=== PATIENT | male | born 1950 | race African-American/Black ===

== ENCOUNTER 2016-12-13 11:19 | Day surgery (SDC) | payer MEDICARE, BC ==
[~2016-12-13] VITALS: Ht 177.8 cm; Wt 129.0 kg
[~2016-12-13 11:19] MED LIST: ASPI81 PO; CINA30 PO; FOSR1000 CHEW; SIMV40TA PO; TEMA30CA PO
[2016-12-13] MEDS ORDERED: IOHEXOL 350 MG/ML 100 ML BTL (for Cath Lab) OTHER ONE (11:20)
[2016-12-13] MEDS ORDERED: TEMA30CA PO (11:52)
[2016-12-13] MEDS ORDERED: SEVEL800 PO (11:52)
[2016-12-13] MEDS ORDERED: ATOR10TA15 PO (11:52)
[2016-12-13] MEDS ORDERED: NIFE30TA61 PO (11:52)
[2016-12-13] MEDS ORDERED: ASPI81CH6 CHEW (11:52)
[2016-12-13] MEDS ORDERED: SENS90TA PO (11:52)
[2016-12-13] MEDS ORDERED: VITA500012 PO (11:52)
[2016-12-13 11:53] VITALS: BP 115/52; PULSE 80; RESP 17; TEMP 98; O2SAT 98
[2016-12-13 11:59] LABS: AUTOMATED NEUTROPHIL # 3.3 TH/MM3 (1.8-7.7); BASOPHIL % 0.2 % (0.0-2.0); EOSINOPHIL # 0.9 TH/MM3 (0-0.4); HEMATOCRIT 37.8 % (39.0-51.0); HEMO FLAGS DIFF FINAL; LYMPH % 26.5 % (9.0-44.0); LYMPHOCYTE # 1.8 TH/MM3 (1.0-4.8); MEAN CELL VOLUME 89.6 FL (80.0-100.0); MEAN CORPUSCULAR HEMOGLOBIN 30.9 PG (27.0-34.0); MEAN CORPUSCULAR HGB CONC 34.5 % (32.0-36.0); MONO % 11.3 % (0.0-8.0); PLATELET COUNT 198 TH/MM3 (150-450); RED BLOOD COUNT 4.22 MIL/MM3 (4.50-5.90); RED CELL DISTRIBUTION WIDTH 14.4 % (11.6-17.2); WHITE BLOOD COUNT 6.8 TH/MM3 (4.0-11.0)
[2016-12-13 12:08] LABS: APTT (PATIENT) 26.4 SEC (24.3-30.1); PROTHROMBIN TIME - PATIENT 10.7 SEC (9.8-11.6)
[2016-12-13] MEDS ORDERED: NS 1000P @30 MLS/HR (KVO) IV SCH (12:15)
[2016-12-13] MEDS ORDERED: diphenhydrAMINE HCL 50 MG CAP PO SCH (12:15)
[2016-12-13 12:18] LABS: POTASSIUM 3.6 MEQ/L (3.5-5.1)
[2016-12-13] MEDS ORDERED: HEPARIN-NS/PF INJ 1,000 ML ONE (13:14)
[2016-12-13] MEDS ORDERED: VERAPAMIL HCL 5 MG/2 ML VIAL ONE (13:21)
[2016-12-13] MEDS ORDERED: MIDAZOLAM HCL 2 MG/2 ML VIAL ONE (13:21)
[2016-12-13] MEDS ORDERED: HEPARIN SODIUM - IV 10,000 UNITS/10 ML VIAL ONE (13:21)
[2016-12-13] MEDS ORDERED: ATROPINE SULFATE 1 MG/ML VIAL IV PUSH PRN (14:00)
[2016-12-13] MEDS ORDERED: ONDANSETRON HCL 4 MG/2 ML VIAL IV PUSH PRN (14:00)
--- NOTE | 2016-12-13 14:01 | CATHPROC ---
[facility] HIS Report Study Information Study Number Admission Scheduled Start Study Start [id number] Dec 13 2016 11:19AM 12/13/2016 Dec 13 2016 1:10PM [facility] Cardiac Catheterization Admit Source Facility Department Other [facility] - Web Applications Architect Physician and Clinical Staff Initial MD Bender, Terell Jeeper Operator Mario Borrego,RASHEED Other cathlab, cathlab Recorder Tiffanie Holguin,NURSE TRANSITION TECH2 Scrub Rebeca Sanabria,RT(R) Procedures Performed Procedure Location (Site) Vessel Name Coronary Angiograms LCA Left Coronary Coronary Angiograms RCA Right Coronary L Heart Cath Equipment Time Online Activist Description Size Mfg Part Number Used/Scraped TRANSDUCER, TRUWAVE [id number] 13:14 [employer]ak VO * Used W/STOCKCOCK *[id number] *[id number] *[id number] 13:14 Ranberry PACK, CCL CUSTOM * Used *[id number] 13:14 [employer] SUPPORT, ARTERIAL ADULT 18414 *[id number] Used BAND, RADIAL COMPRESSION TR [id number] 13:56 [employer] MEDICAL 29CM Used LARGE 29 *[id number] 13:14 [employer] WIRE, 3MMJ .035 180CM 180CM Used *[id number] 13:14 NAMIC MANIFOLD, 4 PORT * Used *[id number] 13:14 NYCOMED OMNIPAQUE, 350 MG, 150ML 150ML [id number] Used [id number] 13:14 [employer] BLANKET,WARM AIR CCL * Used *[id number] SHEATH, FR6 TRANSRADIAL [id number] 13:14 [employer] FR 6 Used SLENDER 10CM *[id number] History: Current Medications Medication Dosage/Unit Route Frequency Last Date/Time Taken ASA Statins (any) History: Allergies Allergy Reaction shellfish derived nuts History: Risk Factors Family History of Hypertension Dyslipidemia Previous ME Previous Heart Failure Premature CAD Yes Yes No No No Prior Valve Prior PCI Prior CABG Surgery No No No Cerebrovascular Peripheral Artery Chronic Lung On Dialysis Diabetes Diabetes Therapy Disease Disease Disease Yes Yes No Yes Yes Diet History: Stress Tests Stress or Imaging Studies Performed No History: Other Disease Selection Items HTN History: Other Current Smoker No Labs Hgb (g/dl) Hct (%) WBC (l/cumm) Platelets (thousands) 11.60-17.00 35.00-51.00 4.00-11.00 150.00-450.00 13.0 37.8 6.8 198 Glucose (mg/dl) BUN (mg/dl) Creatinine (mg/dl) BUN:Creatinine (1:x) 74.00-106.00 7.00-18.00 0.50-1.30 10.00-20.00 146 23 6.7 3.4 Na (meq/l) K (meq/l) 136.00-145.00 3.50-5.10 135 3.6 INR (PTT:PT) 0.90-1.10 1 CPK-MB (ng/ML) 0.50-3.60 Not Drawn Medication Medication Total Dose (Bolus/Oral) Medication Total Dosage/Unit 1% XYLOCAINE 10 mL FENTANYL 25 mcg RADIAL COCKTAIL 5 mL (Bolus) VERSED 2 mg Medications (Bolus/Oral) Medication Time Given Dosage/Unit Administered By Reason VERSED 12/13/2016 1:36:02 PM 1 mg Mario Borrego 1 mg VERSED given in lab by Mario Borrego RN in Right Antecubital via Peripheral IV. Ordered by Terell Arevalo. FENTANYL 12/13/2016 1:36:10 PM 25 mcg Mario Borrego 25 mcg FENTANYL given in lab by Mario Borrego RN in Right Antecubital via Peripheral IV. Ordered by Terell Bender. 1% XYLOCAINE 12/13/2016 1:41:24 PM 10 mL Terell Bender 10 mL 1% XYLOCAINE given in lab by Terell Bender in Right Radial via Subcutaneous. Ordered by Terell Conde. VERSED 12/13/2016 1:43:17 PM 1 mg Mario Borrego 1 mg VERSED given in lab by Mario Borrego RN in Right Antecubital via Peripheral IV. Ordered by Terell Arevalo. Ntg 200mcg Verapamil 2.5mg Heparin RADIAL COCKTAIL 12/13/2016 1:43:34 PM 5 mL (Bolus) Terell Bender 2500U 5 mL (Bolus) RADIAL COCKTAIL given in lab by Terell Bender in Right Radial via Radial. Using [Jaylin ution Name]. Ordered by Terell Bender. Reason: Ntg 200mcg Verapamil 2.5mg Heparin 2500U. Medication (Drip) Medication Time Given Dosage/Unit Concentration/Unit Diluent (ml) Solution IV Solutions 12/13/2016 1:13:15 PM 0 mL (IV) 500 NaCl .9 Patient arrived on IV Solutions given by ashley ramirez in Right Antecubital via Peripheral IV. Pum p/Drip Flow = 20 ml/hr using NaCl .9. Ordered by Terell Bender. Initial Case Assessment Cardiovascular HR Rhythm NIBP Chest Pain 68 andrei 97/47 0 Edema Present Skin color Skin None Normal Warm Dry Circulatory - Right Pulses Dorsalis Pedis Femoral Radial 1 2 2 Scale (0,1,2,3,4,d) Scale (0,1,2,3,4,d) Neurological State Oriented to time-place- Alert Moves all extremities person Respiration - General Respiration Rate SpO2 (%) (B/min) 15 100 Final Case Assessment Cardiovascular HR Rhythm NIBP Chest Pain 85 andrei 94/34 0 Edema Present Skin color Skin None Normal Warm Dry Circulatory - Right Pulses Dorsalis Pedis Femoral Radial 1 2 2 Scale (0,1,2,3,4,d) Scale (0,1,2,3,4,d) Neurological State Oriented to time-place- Alert Moves all extremities person Respiration - General Respiration Rate SpO2 (%) (B/min) 16 100 Chronological Log Time Study Chronological Log 13:09:47 Patient arrived via Bed. 13:09:47 Patient Name, D.O.B, / Armband Verified By R.N. 13:13:07 Consent signed by the physician and the patient and verified by the Web Applications Architect staff. 13:13:08 Pre-op and post- op instructions given; patient acknowledges understanding of instructions. 13:13:08 Verbal Stimulation=2 Physical Stimulation=2 Airway=2 Respiration=2 TOTAL=8. (0=absent, 1=li mited, 2=present) 13:13:09 Presedation assessment performed by Web Applications Architect RN. 13:13:09 Allens test performed on the right radial and ulnar artery. 13:13:10 Immediate Presedation assesment performed by physician. 13:13:10 Patient has been NPO for More than 6Hrs. 13:13:12 Skin Breakdown- none per patient 13:13:12 Patient Warmer Placed on the Table. 13:13:14 Almaz Prominences Protected 13:13:15 A # 20 IV was noted in the Antecubital (right). Grade = 0 Patient arrived on IV Solutions given by cathlab cathkaci in Right Antecubital via Peripheral I V. Pump/Drip Flow = 20 13:13:15 ml/hr using NaCl .9. Ordered by Terell Bender. 13:13:16 History and physical on the chart or being dictated. Vitals capture started with the following parameters, Patient=Adult, Interval=5 min, Initial Pr qrilrt=051 mmHg, 13:16:53 Deflation Rate=5 mmHg, Cuff placed on Left Arm 13:17:33 HR=68 bpm, NIBP=97/47 mmhg, SpO2=99 %, Resp=15 B/min, Pain=0, Skylar=10, Zhang=2 Assessment: Initial Case, HR=68 BPM, Rhythm=andrei, NIBP=97/47 mmhg, Chest Pain=0, Edema=None, Col or=Normal, Skin = Warm, Dry 13:21:05 Right Pulses: Yaakov Ped=1, Femoral=2, Radial=2 Neurological: State=Alert, Ox3, BEE Respiration: Resp=15 B/min, UqS9=899 % 13:23:07 KH=116 bpm, NIBP=93/63 mmhg, SpO2=98.0 %, Resp=14 B/min, Pain=0, Skylar=10, Zhang=2 13:24:27 Reference ECG taken 13:27:29 HR=66 bpm, GTNG=718/43 mmhg, SpO2=99.0 %, Resp=8 B/min, Pain=0, Skylar=10, Zhang=2 13:31:04 Right Radial and right groin prepped with 2% chlorhexidine, and draped after a 3 min. waiti ng time. 13:33:13 HR=68 bpm, QMPJ=570/38 mmhg, SpO2=99.0 %, Resp=18 B/min, Pain=0, Skylar=10, Zhang=2 13:36:02 1 mg VERSED given in lab by Mario Borrego, RN in Right Antecubital via Peripheral IV. Order ed by Terell Bender. 25 mcg FENTANYL given in lab by Mario Borrego, RN in Right Antecubital via Peripheral IV. Order ed by Naploeon, 13:36:10 Terell. 13:37:35 HR=66 bpm, UUFK=368/46 mmhg, SpO2=98.0 %, Resp=14 B/min, Pain=0, Skylar=10, Zhang=2 13:38:05 Pressure channel 1 zeroed. Time Out. Correct patient, correct procedure, correct physician, power injector not loaded with contrast with surgical 13:41:05 team present. Time Out Concurred by MD and individual staff in procedure. 13:41:21 Case Start 10 mL 1% XYLOCAINE given in lab by Terell Bender in Right Radial via Subcutaneous. Ordered by Napoleon, 13:41:24 Terell. 13:42:32 HR=67 bpm, YGVP=689/45 mmhg, SpO2=97.0 %, Resp=14 B/min, Pain=0, Skylar=10, Zhang=2 13:43:17 1 mg VERSED given in lab by Mario Borrego RN in Right Antecubital via Peripheral IV. Order ed by Terell Bender. 13:43:19 Access site was Radial Artery. A SHEATH, FR6 TRANSRADIAL SLENDER 10CM FR 6 was advanced into the Radial (right) using the Yeny fied Seldinger 13:43:28 technique. 5 mL (Bolus) RADIAL COCKTAIL given in lab by Terell Bender in Right Radial via Radial. Princess hogue [Solution Name]. 13:43:34 Ordered by Terell Bender. Reason: Ntg 200mcg Verapamil 2.5mg Heparin 2500U. A JR 4.0 INFINITI CATHETER FR 5 was advanced over a wire. OMNIPAQUE, 350 MG, 150ML 150ML was us ed for 13:43:37 injections. 13:46:03 The RCA was injected and visualized at various angles. OMNIPAQUE, 350 MG, 150ML 150ML used . 13:47:31 HR=69 bpm, NIBP=95/38 mmhg, SpO2=90.0 %, Resp=15 B/min, Pain=0, Skylar=10, Zhang=2 After removing the current catheter a JL 4.0 INFINITI CATHETER FR 4 was advanced over a WIRE, 3MMJ .035 180CM 13:48:34 180CM. 13:51:14 The LCA was injected and visualized at various angles. OMNIPAQUE, 350 MG, 150ML 150ML use d. 13:52:23 Catheter was removed 13:52:30 HR=75 bpm, NIBP=86/45 mmhg, SpO2=94.0 %, Resp=16 B/min, Pain=0, Skylar=10, Zhang=2 13:53:20 Case End 13:55:29 Catheter(s) removed without difficulty Radial Compression Device Used. 13 mLs of air placed in BAND, RADIAL COMPRESSION TR LARGE 29 2 9CM. Affected 13:55:32 hand 100 % O2 saturation. 13:55:53 No case complications noted. 13:55:56 Cine recording checked. 13:55:58 Bedside Report will be given. 13:57:29 HR=85 bpm, NIBP=86/42 mmhg, SpO2=98.0 %, Resp=16 B/min, Pain=0, Skylar=10, Zhang=2 13:58:17 NIBP STAT measurement started. 13:58:51 HR=85 bpm, NIBP=94/35 mmhg, JiW0=087 %, Resp=16 B/min, Pain=0, Skylar=10, Zhang=2 Assessment: Final Case, HR=85 BPM, Rhythm=andrei, NIBP=94/34 mmhg, Chest Pain=0, Edema=None, [place] r=Normal, Skin = Warm, Dry 13:59:20 Right Pulses: Yaakov Ped=1, Femoral=2, Radial=2 Neurological: State=Alert, Ox3, BEE Respiration: Resp=16 B/min, GjJ9=240 % 13:59:27 Vitals capture stopped. 14:00:05 Contrast Scanned 14:00:09 A Left Heart Cath was performed. 14:00:11 [facility] Study - Contrast Media Used In Study Contrast Total Opened (mL) Total Used (mL) Total Wasted (mL) Omnipaque 60 60 0 End Study - Maximum Contrast Load Max Contrast Load (mL) 96.3 End Study - Radiation Exposure Fluoro Time (minutes) 4.4 End Study - Patient Disposition Complications Transferred To Telemetry Bed
--- NOTE | 2016-12-13 14:46 | MA ---
cc: BROOKE FIERRO DATE: 12/13/2016 PROCEDURE PERFORMED 1. Left heart catheterization. 2. Selective right and left coronary angiography, approach right transradial. INDICATIONS Severe symptomatic aortic stenosis, preoperative work-up. PROCEDURE DESCRIPTION Consent was signed. The patient was prepped and draped in a sterile fashion. Using 1% lidocaine for local anesthesia and a micropuncture kit a 6 [place] sheath was inserted into the right radial artery. An antispasmodic cocktail was given then selective right and left coronary angiography was performed with a JR 4.0 and a JL 3.5 diagnostic catheter. Angiography was taken in multiple views. The patient tolerated the procedure well without complications. Estimated blood loss less than 5 cc. Total contrast used was 40 cc. The right wrist access site was closed with a TR band. RESULTS ANGIOGRAPHY 1. The right coronary artery is dominant. It has a 20% lesion in its midsegment. The PDA and the PLV branches are patent with KYLEE-III flow and nonobstructive coronary artery disease. 2. The left main measures more than 4 mm. It is giving off the left circumflex and LAD. It is patent with KYLEE-III flow. 3. The LAD is a transapical vessel. It has a big size of at least 4 mm until the midportion and then it is 3 mm throughout. It is giving off two diagonal branches which are patent with KYLEE-III flow and nonobstructive coronary artery disease. 4. The left circumflex artery is giving off two OM branches which are patent with KYLEE-III flow and nonobstructive coronary artery disease. CONCLUSIONS 1. Nonobstructive coronary artery disease. 2. Severe aortic stenosis. RECOMMENDATIONS The patient will be consulted to CT surgery for AVR vs TAVR. MD VINICIUS Watts/EVA /2:03 PM /2:28 PM DINORAH
--- NOTE | 2016-12-13 16:48 | PD.CAR.PN ---
CVT Progress Note Subjective/Hospital Course: RISK SCORES About the STS Risk Calculator Procedure: AV Replacement Risk of Mortality: 5.317% Morbidity or Mortality: 38.5% Long Length of Stay: 21.488% Short Length of Stay: 10.956% Permanent Stroke: 1.675% Prolonged Ventilation: 31.732% DSW Infection: 1.663% Renal Failure: N/A Reoperation: 12.676% Objective: Vital Signs Date Time Temp Pulse Resp B/P (MAP) Pulse Ox O2 Delivery O2 Flow Rate FiO2 12/13/16 14:26 96 Room Air 12/13/16 11:53 98.0 80 17 115/52 (73) 98 Labs: Laboratory Tests Test 12/13/16 11:47 12/13/16 12:30 White Blood Count 6.8 TH/MM3 (4.0-11.0) Red Blood Count 4.22 MIL/MM3 (4.50-5.90) Hemoglobin 13.0 GM/DL (13.0-17.0) Hematocrit 37.8 % (39.0-51.0) Mean Corpuscular Volume 89.6 FL (80.0-100.0) Mean Corpuscular Hemoglobin 30.9 PG (27.0-34.0) Mean Corpuscular Hemoglobin Concent 34.5 % (32.0-36.0) Red Cell Distribution Width 14.4 % (11.6-17.2) Platelet Count 198 TH/MM3 (150-450) Mean Platelet Volume 8.4 FL (7.0-11.0) Neutrophils (%) (Auto) 49.0 % (16.0-70.0) Lymphocytes (%) (Auto) 26.5 % (9.0-44.0) Monocytes (%) (Auto) 11.3 % (0.0-8.0) Eosinophils (%) (Auto) 13.0 % (0.0-4.0) Basophils (%) (Auto) 0.2 % (0.0-2.0) Neutrophils # (Auto) 3.3 TH/MM3 (1.8-7.7) Lymphocytes # (Auto) 1.8 TH/MM3 (1.0-4.8) Monocytes # (Auto) 0.8 TH/MM3 (0-0.9) Eosinophils # (Auto) 0.9 TH/MM3 (0-0.4) Basophils # (Auto) 0.0 TH/MM3 (0-0.2) CBC Comment DIFF FINAL Differential Comment Prothrombin Time 10.7 SEC (9.8-11.6) Prothromb Time International Ratio 1.0 RATIO Activated Partial Thromboplast Time 26.4 SEC (24.3-30.1) Blood Urea Nitrogen 23 MG/DL (7-18) Creatinine 6.76 MG/DL (0.60-1.30) Random Glucose 146 MG/DL (74-106) Calcium Level 9.3 MG/DL (8.5-10.1) Sodium Level 135 MEQ/L (136-145) Potassium Level 3.6 MEQ/L (3.5-5.1) Chloride Level 98 MEQ/L (98-107) Carbon Dioxide Level 28.0 MEQ/L (21.0-32.0) Anion Gap 9 MEQ/L (5-15) Estimat Glomerular Filtration Rate 10 ML/MIN (>89) Albumin 3.9 GM/DL (3.4-5.0) Nasal Screen MRSA (PCR) MRSA NOT DETECTED (NOT Result Diagram: 12/13/16 1147 12/13/16 1147 Rebecca Osuna Dec 13, 2016 16:48
--- NOTE | 2016-12-13 18:31 | RADRPT ---
EXAM DATE/TIME: 12/13/2016 16:58 [facility] COMPARISON: No previous studies available for comparison. INDICATIONS : Evaluate for pneumothorax, pneumonia and communicable diseases. Pre-op for AVR vs TAVR. MEDICAL HISTORY : Diabetes mellitus type II. Hypothyroidism. Chronic obstructive pulmonary disease. Sleep apnea. SURGICAL HISTORY : None. ENCOUNTER: Initial ACUITY: 1 day PAIN SCORE: 0/10 LOCATION: Bilateral chest FINDINGS: Frontal and lateral views of the chest demonstrate a normal-sized cardiac silhouette. Right chest wal l pacing device is present with lead tips overlying the right heart. No effusion, consolidation, or p neumothorax is seen. Bones and soft tissues demonstrate no acute finding. CONCLUSION: No acute cardiopulmonary abnormality is identified. Artur Velazquez MD on December 13, 2016 at 18:28 Board Certified Radiologist. This report was verified electronically.
--- NOTE | 2016-12-14 07:39 | MB ---
cc: CHANDA CRAVEN MD DATE OF CONSULTATION: 12/13/2016 DATE OF : 1950 HISTORY OF PRESENT ILLNESS: A 66-year-old male patient of Dr. Emmanuel Campbell, Dr. Maximilian Al, Dr. Granados and Dr. Terell Rivera. The patient is followed by Dr. Granados for his pacemaker which he obtained 2013 for symptomatic second degree heart block. He had been complaining of some shortness of breath for the last couple of weeks. He says he normally rides his bike four to five blocks, he says he uses some calisthenics, uses some weight and goes fishing on a regular basis, however, he has been unable to do so because of his shortness of breath. He presented for further workup after he had a 2-D echo November 23, 2016 which showed an ejection fraction of 61%, some diastolic dysfunction, aortic valve severely calcified consistent with severe stenosis. Peak gradient of 90 mmHg, mean gradient of 42, valve area 0.8 cm squared. Also some moderate to severe aortic insufficiency. No tricuspid regurgitation, some mild mitral regurgitation. We were consulted to evaluate for open aortic valve replacement versus candidate for transcatheter aortic valve replacement. PAST MEDICAL HISTORY, PAST SURGICAL HISTORY: The patient's past medical history includes: 1. Aortic valve disease 2. Diabetes mellitus type 2, diet controlled. 3. End-stage renal disease on dialysis Monday, Monday, Monday, followed by Dr. Al. 4. Morbid obesity with a BMI of 40. 5. Hyperlipidemia 6. Hypertension. 7. Pacer in situ Biotronik device. 8. Pulmonary hypertension with pa pressures of 60 that was done by cath on 12/2014. 9. Sleep apnea. 10. History of TIA. 11. Left forearm av fistula. ALLERGIES: No known allergies MEDICATIONS Home medications include 1. Aspirin 81 mg. 2. Atorvastatin 10. 3. Nifedipine 30 milligrams. 4. Renvela 800. 5. Sensipar 90. 6. Restoril 30. FAMILY HISTORY: Mother from complications of kidney failure. Father from a stroke. SOCIAL HISTORY Patient , four children, disabled, retired truckdriver. Admits to using crack cocaine in 2004, no IV drug use, smoked marijuana but quit in 1995, alcohol. REVIEW OF SYSTEMS: General: No night sweats, fever, heat and cold intolerance. Skin: No psoriasis, itching or hives. HEENT: No blurred vision, hearing loss. Respiratory: Positive for shortness of breath. Cardiovascular: No chest pain. No paroxysmal nocturnal dyspnea. Gastrointestinal: No diarrhea, vomiting. He does have some occasional reflux. SEAMSTRESS FITTER: Positive for history of TIA in 2007. Endocrinology: Positive for diabetes mellitus. PHYSICAL EXAMINATION: This is a 66 year-old male appears older than his age. VITAL SIGNS: Blood pressure 115/60, heart rate of 80, temperature max 98.0, room air, sat 96. Patient is awake, alert, no acute distress. Head: Normocephalic, atraumatic. Pupils equal and reactive. Oral mucosa pink, moist. Neck: Supple. No JVD. Heart: Heart sounds S1-S2 with a grade 3/6 systolic murmur. Lungs: Clear to auscultation. No wheezes, rales or rhonchi. Abdomen: Soft, nontender. No masses or organomegaly. Extremities: No cyanosis, clubbing or edema. LABORATORY DATA: Lab work shows hemoglobin 13, hematocrit of 37, white cell count 6.8, platelet count 198, INR 1.0, sodium 136, potassium 3.6, BUN of 23, creatinine 6.76. CTA, TAVR protocol pending. The patient underwent frailty score which showed a 2/4 failing the walk test, also his BMI being 40.81. STS score is 5.3, risk of mortality/morbidity 38.5. Cardiac cath showed nonobstructive disease, FEV-1 is 2.08, 62% predicted. IMPRESSION A 66-year-old male with severe aortic valve disease, gradient as above. The patient's comorbidities include obvious morbid obesity of 41 with risk of mortality 5.3, frailty score 2/4. Other comorbidities include diabetes mellitus, end-stage renal disease. RECOMMENDATIONS At this time since his high risk of mortality the patient would be to evaluated for transcatheter aortic valve replacement. The patient will also be evaluated by our partner Dr. Lory Lima for further evaluation. Dictated by: LAXMI Rivera Given his intermediate surgical risk, morbid obesity, renal failure, diabetes and other significant medical co-morbidities, I think he will be best served with TAVR therapy. Chanda MARTÍNEZ /4:56 PM /7:40 AM MTDAimee
--- NOTE | 2016-12-14 09:45 | EKG ---
Date Performed: 12/13/2016 Time Performed: 18:33:42 PTAGE: 66 years EKG: Sinus rhythm . Left axis deviation Left bundle branch block Possible inferior infarct - age undetermined Lateral S T elevation, CONSIDER ACUTE INFARCT Anteroseptal ST-T changes suggest myocardial injury/ischemia Low QRS voltages in precordial leads Abnormal ECG PREVIOUS TRACING : 12/13/2016 12.01 DOCTOR: Ian Torres Interpretating Date/Time 12/14/2016 09:44:22
--- NOTE | 2016-12-14 10:04 | EKG ---
Date Performed: 12/13/2016 Time Performed: 12:01:24 PTAGE: 66 years EKG: Sinus rhythm . Left axis deviation Left bundle branch block Possible inferior infarct - age undetermined Septal ST -T changes are nonspecific Low QRS voltages in precordial leads Abnormal ECG NO PREVIOUS TRACING DOCTOR: Ian Torres Interpretating Date/Time 12/14/2016 10:03:16
== END 2016-12-13 19:03 | disposition home or self-care (01) ==
LOC: HDOC 11:19 → HDIC 11:20 → HDOC 19:03
PROVIDERS: ATTEND Radiology Vascular & Interventional Radiology
DX: I25.10 Atherosclerotic heart disease of native coronary artery without angina pectoris (principal); I35.0 Nonrheumatic aortic (valve) stenosis; I35.1 Nonrheumatic aortic (valve) insufficiency; I44.1 Atrioventricular block, second degree; I12.0 Hypertensive chronic kidney disease with stage 5 chronic kidney disease or end stage renal disease; N18.6 End stage renal disease; E11.22 Type 2 diabetes mellitus with diabetic chronic kidney disease; E66.01 Morbid (severe) obesity due to excess calories; J44.9 Chronic obstructive pulmonary disease, unspecified; E03.9 Hypothyroidism, unspecified; E78.5 Hyperlipidemia, unspecified; G47.30 Sleep apnea, unspecified; Z68.41 Body mass index [BMI] 40.0-44.9, adult; Z99.2 Dependence on renal dialysis; Z79.82 Long term (current) use of aspirin; Z86.73 Personal history of transient ischemic attack (TIA), and cerebral infarction without residual deficits
CPT/HCPCS: 71020; 80048; 82040; 85025; 85610; 85730; 86850; 86900; 86901; 87641; 93005; 93454; 94010; 99152; 99153; C1769; C1893; J1644; J2250; J3010; Q0163; Q9967

== ENCOUNTER → 2016-12-22 | Outpatient (CLI) | payer MEDICARE, BC ==
[~2016-12-22] MED LIST changes: -ASPI81 PO; +ASPI81CH6 CHEW; +ATOR10TA15 PO; -CINA30 PO; -FOSR1000 CHEW; +IOHEXOL 350 MG/ML 10 ML VIAL (for RAD DIAG) IVCONTRAST ONE; +NIFE30TA61 PO; +SENS90TA PO; +SEVEL800 PO; -SIMV40TA PO; +VITA500012 PO
--- NOTE | 2016-12-22 15:59 | RADRPT ---
EXAM DATE/TIME: 12/22/2016 12:28 [facility] COMPARISON: No previous studies available for comparison. INDICATIONS : Pre-operative evaluation for aortic valve replacement. IV CONTRAST: 99 cc Omnipaque 350 (iohexol) IV RADIATION DOSE: 47.59 CTDIvol (mGy) MEDICAL HISTORY : Cardiovascular disease. Hypertension. Renal disease, end stage.Coronary artery disease, diabetes. SURGICAL HISTORY : Pacemaker. ENCOUNTER: Initial ACUITY: 1 day PAIN SCALE: 0/10 LOCATION: chest TECHNIQUE: Volumetric scanning was performed using a multi-row detector CT scanner. The data was post processed with a variety of visualization algorithms including full volume maximum intensity projection, multi -planar sliding thin slab reformation, curved planar reformation, and surface rendering techniques. Using automated exposure control and adjustment of the mA and/or kV according to patient size, radiat ion dose was kept as low as reasonably achievable to obtain optimal diagnostic quality images. DIC OM format image data is available electronically for review and comparison. FINDINGS: CARDIAC: The coronary system is right dominant. Diffuse calcified plaque throughout the coronary arteries. The origin of the right coronary artery is obscured by pacer leads. There is no pericardial effusion AORTIC ROOT/VALVE: 3 cusps are evident with moderate calcifications. The aortic root measures 3.7 x 3.1 cm. Mid thoracic aorta measures 2.9 x 2.8 cm with no calcifications. THORACIC AORTA: Origin of the great vessels is normal. No evidence of aneurysm, mural thrombus, dissection, or sten osis. Calcified atherosclerotic plaque involving the origin of the arch vessels most pronounced invol ving the left subclavian artery origin. No hemodynamically significant stenosis. Calcification seen i nvolving the aortic arch as well without significant luminal narrowing or ulceration. ABDOMINAL AORTA: No evidence of aneurysm, mural thrombus, dissection or stenosis. Scattered calcified plaque involving the abdominal aorta most abundant within the infrarenal extent. CELIAC ARTERY: Celiac artery is widely patent. SMA: Superior mesenteric artery is widely patent. RIGHT RENAL ARTERY: The right renal artery is diffusely small in caliber in this patient with an atrophic right kidney. LEFT RENAL ARTERY: The left renal artery is diffusely small in caliber in this patient with an atrophic left kidney. RIGHT COMMON ILIAC: No evidence of aneurysm, mural thrombus, dissection, or stenosis. Calcified plaque. The common femor al measures 9 mm. LEFT COMMON ILIAC: No evidence of aneurysm, mural thrombus, dissection, or stenosis. Calcified plaque. The common femora l measures 9 mm. THORAX: A calcified granuloma is seen involving the super segment of the left lower lobe. Lungs are clear wit hout signs of infiltrate or worrisome nodules. The heart is normal in size. No pericardial effusion. No adenopathy. ABDOMEN: The liver is diffusely low in attenuation. The kidneys are atrophic and numerous small cortical cysts are seen bilaterally. Scattered colonic diverticuli. No acute inflammation. PELVIS: Urinary bladder is decompressed and contains a Lazaro balloon. No mass or adenopathy. CONCLUSION: 1. 3 cusp aortic valve with moderate calcifications. The sinus of Valsalva measures 3.7 x 3.1 cm. 2. Atrophic kidneys bilaterally with polycystic kidney disease. 3. Hepatic steatosis. Rodo Marina Jr., MD on December 22, 2016 at 15:14 Board Certified Radiologist. This report was verified electronically.
== END ==
LOC: HRAD 11:18
PROVIDERS: ATTEND Radiology Vascular & Interventional Radiology
DX: I35.0 Nonrheumatic aortic (valve) stenosis (principal); R07.9 Chest pain, unspecified
CPT/HCPCS: 74174; Q9967

== ENCOUNTER 2017-01-06 05:09 | Inpatient (IN) | payer MEDICARE, BC ==
[~2017-01-06] VITALS: Ht 177.8 cm; Wt 128.6 kg
[2017-01-06] VITALS (11 sets, daily range): BP systolic 113–179; BP diastolic 50–79; PULSE 66–99; RESP 13–20; TEMP 97–98; O2SAT 80–98
[~2017-01-06 05:09] MED LIST changes: -IOHEXOL 350 MG/ML 10 ML VIAL (for RAD DIAG) IVCONTRAST ONE
[2017-01-06] MEDS ORDERED: POVIDONE IODINE 5% (ANTISEPSIS KIT) EACH NARE PRN ×2 (05:45→07:15)
[2017-01-06] MEDS ORDERED: ceFAZolin 2 GM PREMIX 50 ML IV PRN ×2 (05:45→07:15)
[2017-01-06] MEDS ORDERED: SODIUM CHLOR 0.9% 1000 ML 1,000 ML IV SCH (05:45)
[2017-01-06] MEDS ORDERED: CHLORHEXIDINE GLUCONATE 2 % 1 PACK (2 CLOTHS) TOPICAL PRN ×2 (06:00→07:15)
[2017-01-06] MEDS ORDERED: LACTATED RINGER'S 1000 ML IV PRN (06:00)
[2017-01-06] MEDS ORDERED: POVIDONE IODINE 5% (ANTISEPSIS KIT) 4 APPLICATIONS EACH NARE PRN (06:00)
[2017-01-06] MEDS: MUPIROCIN 2% OINT 1 APPLIC/GM SYRINGE EACH NARE PRN ×2 (06:32→06:57)
[2017-01-06] MEDS: CHLORHEXIDINE GLUCONATE 2 % 1 PACK (2 CLOTHS) TOPICAL PRN ×2 (06:33→06:57)
[2017-01-06 06:42] LABS: AUTOMATED NEUTROPHIL # 3.9 TH/MM3 (1.8-7.7); BASOPHIL # 0.1 TH/MM3 (0-0.2); BASOPHIL % 1.3 % (0.0-2.0); EOSINOPHIL # 1.1 TH/MM3 (0-0.4); EOSINOPHIL % 13.6 % (0.0-4.0); HEMATOCRIT 35.8 % (39.0-51.0); HEMO FLAGS DIFF FINAL; LYMPHOCYTE # 1.8 TH/MM3 (1.0-4.8); MEAN CELL VOLUME 90.1 FL (80.0-100.0); MEAN CORPUSCULAR HEMOGLOBIN 29.9 PG (27.0-34.0); MEAN CORPUSCULAR HGB CONC 33.1 % (32.0-36.0); MONO % 12.9 % (0.0-8.0); NEUT % 49.2 % (16.0-70.0); PLATELET COUNT 171 TH/MM3 (150-450); RED BLOOD COUNT 3.97 MIL/MM3 (4.50-5.90); RED CELL DISTRIBUTION WIDTH 14.6 % (11.6-17.2)
[2017-01-06 06:51] LABS: APTT (PATIENT) 21.4 SEC (24.3-30.1); PROTHROMBIN TIME - PATIENT 10.5 SEC (9.8-11.6)
[2017-01-06 07:01] LABS: POTASSIUM 5.2 MEQ/L (3.5-5.1)
[2017-01-06] MEDS ORDERED: HEPARIN-NS/PF INJ 2,500 ML ONE (07:04)
[2017-01-06] MEDS ORDERED: ASPIRIN 325 MG TAB PO ONE (07:15)
[2017-01-06] MEDS ORDERED: MUPIROCIN 2% OINT 1 APPLIC/GM SYRINGE EACH NARE PRN (07:15)
[2017-01-06] MEDS ORDERED: diphenhydrAMINE HCL 50 MG/ML VIAL ONE (07:57)
[2017-01-06] MEDS ORDERED: methylPREDNISolone SOD SUCC 125 MG/2 ML VIAL ONE (07:57)
[2017-01-06] MEDS ORDERED: DEXTROSE 50% IN WATER 50 ML SYRINGE ONE (09:26)
[2017-01-06] MEDS ORDERED: DEXMEDETOMIDINE HCL 200 MCG/2 ML VIAL ONE (10:24)
--- NOTE | 2017-01-06 10:45 | PD.OP ---
cc: Terell Benedr MD; Lory Lima MD; Ian Torres MD Operative Report Date of Surgery: Jan 06, 2017 Preoperative Diagnosis: (1) Aortic stenosis (2) Aortic regurgitation (3) Diastolic CHF due to valvular disease Postoperative Diagnosis: same Procedure: Transcatheter AVR with a 29 Allan 3 tissue valve Percutaneous access right femoral artery and vein with transvenous pacemaker placement Percutaneous access left femoral artery with Perclose closure Aortography Fluoroscopy SANDRA Anesthesia: Dr. Beltran Surgeon: Lory Lima Co-surgeon - Dr. Rivera Software Developer Consultant(s): Operation and Findings: The risks, benefits, complications, treatment options, and expected outcomes were discussed with the patient. The possibilities of reaction to medication, pulmonary aspiration, perforation of viscus, bleeding, recurrent infection, the need for additional procedures, failure to diagnose a condition, and creating a complication requiring transfusion or operation were discussed with the patient. The patient concurred with the proposed plan, giving informed consent. The site of surgery properly noted/marked. The patient was taken to the hybrid operating room, identified as Sergio Rojas and the procedure verified as Transcatheter Aortic Valve Replacement. A Time Out was held and the above information confirmed. Standard monitoring lines and Lazaro catheter were placed. General anesthesia was induced. The patient was prepped and draped in a sterile fashion. Initially, right femoral arterial and venous access was acquired using a Seldinger percutaneous technique. The details of this procedure were dictated under separate note by cardiology. Once a pigtail was positioned in the aortic annulus and a temporary transvenous pacemaker wire was placed in the right ventricular apex and tested, the left femoral artery was accessed using a needle followed by a guidewire under fluoroscopic guidance. The patient was heparinized. Serial dilators were used to dilate the left femoral artery to 16 Guamanian caliber. The Burton sheath was then inserted up to the distal abdominal aorta. Arch aortography was performed to define the implant view. A 29 Burton Allan 3 transcatheter aortic valve was then positioned in the annulus and deployed with the patient being paced at 180 beats per minute. Following deployment, the valve apparatus was withdrawn and arch aortography and SANDRA were performed to assess the valve. The valve had no significant perivalvular leaks. Gradients were then measured and the sheath was removed. The artery was closed with previously placed Perclose sutures. The right femoral artery and vein were also closed with closure devices. The patient received protamine. Sterile dressings were placed. At the end of the operation, all sponge, instruments, and needle counts were correct. The patient was transferred to the CICU in stable condition. Findings: Severe AI and . No PVL post deployment Implants: 29 S3 tissue valve Complications: none Disposition: to CVICU in stable condition Lory Lima MD Jan 06, 2017 10:45
[2017-01-06] MEDS ORDERED: PROPOFOL 500 MG/50 ML INJ 50 ML ONE (11:07)
--- NOTE | 2017-01-06 11:10 | MH ---
cc: BROOKE FIERRO DATE OF ADMISSION 01/06/2017 DATE OF 1950 HISTORY OF PRESENT ILLNESS 66-year-old male with a past medical history significant for end-stage renal disease on dialysis, permanent pacemaker secondary to second degree AV block, hypertension, diabetes, morbid obesity, acute on chronic diastolic heart failure who is being admitted today for elective aortic valve replacement in the setting of severe symptomatic aortic stenosis with preserved ejection fraction. The patient reports that in the last following weeks to months he has been having increasing worsening of shortness of breath on minimal exertion NYHA III sx. He has been referred to the [facility] team for further management evaluation. Upon thorough workup he was deemed to be intermediate risk for conventional AVR. Thus, he is being admitted today for transfemoral TAVR. REVIEW OF SYSTEMS Negative except for what is mentioned in the HPI. PAST MEDICAL HISTORY Morbid obesity, Biotronik permanent pacemaker, pulmonary hypertension, diabetes , hypertension, end-stage renal disease on dialysis on Monday, and Saturdays. Hyperlipidemia, TIA. PAST SURGICAL HISTORY fistula, pacemaker placement. HOME MEDICATIONS 1. Aspirin 81 milligrams p.o. daily. 2. Lipitor 10 milligrams p.o. daily. 3. Sensipar 90 milligrams p.o. daily. 4. Vitamin D 50,000 units by mouth biweekly. 5. Nifedipine 30 milligrams p.o. daily. 6. Protonix 40 milligrams p.o. daily. 7. Sevelamer 800 milligrams p.o. three times a day. 8. Temazepam 30 milligrams p.o. at night at bedtime for sleep. SOCIAL HISTORY Denies smoking, alcohol use or illicit drug use. FAMILY HISTORY Father had a stroke. Mother with diabetes and kidney disease. PHYSICAL EXAMINATION VITAL SIGNS: Temperature 97, respiratory rate 18, heart rate 70, blood pressure 150/70, O2 sat 100% on room air. GENERAL: Generally awake, alert, oriented x3 in no distress. NECK: No JVD or carotid bruits. HEART: Regular rate and rhythm, 3/6 systolic ejection murmur. LUNGS: Clear to auscultation. ABDOMEN: Benign. EXTREMITIES: No cyanosis or edema. Pulses throughout. TAVR WORKUP STS score 5.3%. BMI is 40.8, frailty 2/4. EKG sinus rhythm with a left bundle branch block, nonspecific ST changes. PFTs mild to moderate restrictive lung disease. Echocardiogram aortic valve velocity of 4.7, mean gradient 42, calculated valve area of 0.8, ejection fraction 61%. Moderate aortic regurgitation. Coronary angiogram no obstructive coronary artery disease. TAVR CTA short annulus diameter of 22, long annulus diameter 233, annular area of 670. Sinus of Valsalva diameter 33.4. STJ 30. Left coronary height and right coronary height more than 10. The aortic valve is a trileaflet valve. There is minimal calcification in the LVOT, iliacs the right minimal luminal diameter is 8.1 and the left minimal diameter is 8.7. ASSESSMENT/PLAN 66-year-old male admitted today for elective aortic valve replacement in the setting of severe symptomatic aortic stenosis with preserved ejection fraction, acute on chronic diastolic heart failure. The risks, benefits of TAVR including but not limited to infection, bleeding, neurovascular trauma, stroke, emergent open heart surgery and have been explained to the patient. The patient understands the risks and is willing to proceed. PLAN Keep n.p.o. for a Left TF TAVR today. Brooke Fierro MD, MPH, [facility] GENER[facility]NAGER/EO /7:05 PM /11:05 AM DINORAH
[2017-01-06] MEDS ORDERED: CLOPIDOGREL 300 MG TAB PO ONE ×2 (11:30→15:00)
--- NOTE | 2017-01-06 11:31 | PD.PROCEDR ---
Procedure Note Procedure Procedure: Transesophageal Echocardiography Diagnosis: Severe aortic stenosis Indications: Perioperative planning for transcatheter aortic valve replacement Consent: obtained Anesthesia: Gen. endotracheal anesthesia Description of the Procedure: The patient was sedated and mechanically ventilated. The echo probe was inserted easily and without resistance. At the conclusion of the procedure, the echo probe was removed. Please see detailed echocardiogram report for formal findings. Preliminary Findings (not confirmed): pre-procedure: 1) normal left ventricular function 2) severe aortic stenosis 3) severe aortic regurgitation 4) mild mitral regurgitation 5) trace-mild tricuspid regurgitation 6) no pericardial effusion The patient tolerated the procedure well with no hemodynamic instability or hypoxia. There were no immediate complications noted. At the conclusion of the procedure, the patient was placed back on their pre-procedure ventilatory settings. There was minimal EBL. I personally performed the procedure. Paul Ortiz MD Jan 06, 2017 11:31
--- NOTE | 2017-01-06 11:45 | PD.CONS ---
[facility] Service Critical Care Medicine Consult Requested By Dr. Rivera Reason for Consult perioperative management of medical comorbidities Primary Care Physician Aimee Campbell History of Present Illness This is a 66yM with a history of ESRD on IHD T/T/Sa, second degree AVB s/p dual- chamber PPM, morbid obesity, pulmonary hypertension, htn, dm, and severe symptomatic aortic stenosis with associated severe aortic regurgitation. he presents for elective TAVR today. his intra-operative course was complicated by hyperkalemia to 6 and pulmonary edema. For these reasons, and due to the the fact that he was a difficult intubation, and his pco2 at the conclusion of the case, he remains intubated and is taken to the CVICU intubated and sedated. I evaluated the patient in the CVICU, intubated, and sedated. no additional information is available from the patient. the remainder of the history is taken from the medical record. ROS unobtainable. Review of Systems ROS Limitations: Clinical Condition, Intubated, Altered Mental Status Past Family Social History Allergies: Coded Allergies: shellfish derived (Unverified Allergy, Severe, 12/13/16) Gout Uncoded Allergies: nuts (Allergy, Severe, 08/24/11) "causes gout to flare up" Past Medical History End-stage renal disease on intermittent hemodialysis Monday, , Monday Morbid obesity Second-degree AV block requiring Biotronik permanent pacemaker, dual-chamber Pulmonary hypertension Morbid obesity Diabetes Hypertension Hyperlipidemia Prior TIA Severe symptomatically aortic stenosis Severe aortic regurgitation Past Surgical History AV fistula Biotronik dual-chamber permanent pacemaker Reported Medications Aspirin Lipitor Sensipar Vitamin D Nifedipine Protonix sevelamer Temazepam Active Ordered Medications See MAR Family History Father had CVA Mother with diabetes and kidney disease Social History Denied smoking, alcohol, or drugs. Physical Exam Vital Signs Vital Signs Date Time Temp Pulse Resp B/P (MAP) Pulse Ox O2 Delivery O2 Flow Rate FiO2 01/06/17 06:16 98.0 80 20 134/50 (78) 97 Physical Exam GENERAL: Morbidly obese male, lying in bed, intubated, sedated HEENT: Normocephalic. Atraumatic. Pupils equal, round, reactive, conjugate. Mucous membranes are moist NECK: Trachea is midline. JVD is unable to be assessed due to his large neck circumference and obesity CHEST: Equal chest rise. FiO2 100% with SPO2 of 92%. PRVC tidal volume 550, PEEP of 12 distant breath sounds CARDIOVASCULAR: Normal rate, regular rhythm. Intermittently AV paced. Hypertensive with SBP 170 on my eval ABDOMEN: Obese, Soft, nontender, nondistended. No guarding. MUSCULOSKELETAL: Pulses 2+. No peripheral edema. Bilateral groin sites dressed with gauze dressing, clean dry and intact. Lower extremity Dopplers present NEUROLOGICAL: RASS -3. Still arousing from anesthesia, sedated, intubated. Laboratory Laboratory Tests Test 01/06/17 05:55 White Blood Count 8.0 Red Blood Count 3.97 Hemoglobin 11.9 Hematocrit 35.8 Mean Corpuscular Volume 90.1 Mean Corpuscular Hemoglobin 29.9 Mean Corpuscular Hemoglobin Concent 33.1 Red Cell Distribution Width 14.6 Platelet Count 171 Mean Platelet Volume 9.3 Neutrophils (%) (Auto) 49.2 Lymphocytes (%) (Auto) 23.0 Monocytes (%) (Auto) 12.9 Eosinophils (%) (Auto) 13.6 Basophils (%) (Auto) 1.3 Neutrophils # (Auto) 3.9 Lymphocytes # (Auto) 1.8 Monocytes # (Auto) 1.0 Eosinophils # (Auto) 1.1 Basophils # (Auto) 0.1 CBC Comment DIFF FINAL Differential Comment Prothrombin Time 10.5 Prothromb Time International Ratio 1.0 Activated Partial Thromboplast Time 21.4 Blood Urea Nitrogen 47 Creatinine 10.08 Random Glucose 216 Calcium Level 9.6 Sodium Level 134 Potassium Level 5.2 Chloride Level 97 Carbon Dioxide Level 27.0 Anion Gap 10 Estimat Glomerular Filtration Rate 6 Albumin 3.7 Result Diagram: 01/06/17 0555 01/06/17 0555 Assessment and Plan Assessment and Plan Assessment: 66-year-old male with end-stage renal disease and now postop day 0 status post transcatheter aortic valve replacement. His course is complicated by hyperkalemia requiring urgent dialysis and pulmonary edema. will keep him intubated until after IHD, recheck potassium. Given difficult intubation, will take great caution in making sure he is awake and all parameters are met before pursuing extubation. Pulmonary Edema - wean fio2 for goal spo2 > 90% - urgent IHD - wean vent after IHD. will attempt to extubate if possible. Hyperkalemia - refractory to medical therapy - IHD - recheck K after s/p TAVR 01/06 - groin checks - anticoagulation per Dr. Rivera - LE neurovascular checks - anuric at baseline. Diabetes - ssi Hypertension - IHD today. will re-eval and add back home anti-hypertensives as needed - goal SBP 120 - 180. Hyperlipidemia - home statin dispo: remain in ICU. will attempt to wean to extubate today, understanding he is a difficult airway, with hypercarbia, pulmonary edema, hyperkalemia, and morbid obesity. Critical care time: 31 minutes, exclusive of separately billable procedures. This patient is critically ill due to his medically-refractory hyperkalemia and pulmonary edema which require urgent hemodialysis and active management. these conditions are life-threatening. Paul Ortiz MD Jan 06, 2017 11:45
[2017-01-06] MEDS ORDERED: SODIUM CHLOR 0.9% 1000 ML INJ 1,000 ML IV PRN (11:48)
[2017-01-06] MEDS ORDERED: SODIUM CHLOR 0.9% 1000 ML INJ 1,000 ML OTHER PRN ×2 (11:48)
[2017-01-06] MEDS ORDERED: HEPARIN SODIUM - IV 10,000 UNITS/10 ML VIAL IV FLUSH PRN (12:00)
[2017-01-06] MEDS ORDERED: EPOETIN ALFA 10,000 UNITS/ML VIAL IV PUSH PRN (12:00)
[2017-01-06] MEDS ORDERED: ONDANSETRON HCL 4 MG/2 ML VIAL IV PUSH PRN (12:00)
[2017-01-06] MEDS ORDERED: ACETAMINOPHEN 325 MG TAB PO PRN ×2 (12:00→15:00)
[2017-01-06] MEDS ORDERED: diphenhydrAMINE HCL 25 MG CAP PO PRN (12:00)
[2017-01-06] MEDS ORDERED: HEPARIN SODIUM - IV 10,000 UNITS/10 ML VIAL PRN (12:00)
[2017-01-06] MEDS ORDERED: GENTAMICIN SULFATE (DIALYSIS USE ONLY) 20 MG/2 ML VIAL OTHER PRN (12:00)
[2017-01-06] MEDS ORDERED: cloNIDine HCL 0.1 MG TAB PO PRN (12:00)
[2017-01-06] MEDS ORDERED: SODIUM CHLORIDE 0.9% FLUSH 10 ML FLUSH IV FLUSH PRN (12:00)
[2017-01-06] MEDS ORDERED: MANNITOL 12.5 GM/50 ML VIAL IV PRN (12:00)
[2017-01-06] MEDS ORDERED: ALBUMIN 25% INJ 100 ML IV PRN (12:00)
[2017-01-06] MEDS ORDERED: NITROGLYCERIN 0.4 MG SL 25 TABS/BTL SL PRN (12:00)
[2017-01-06] MEDS ORDERED: CALCIUM CHLORIDE INJ 1 GM in SODIUM CHLORIDE 0.9% INJ 100 ML IV ONE (14:00)
[2017-01-06] MEDS ORDERED: PROPOFOL 1000 MG/100 ML IV PRN (14:00)
[2017-01-06] MEDS ORDERED: IOHEXOL IV ONE (14:07)
[2017-01-06] MEDS: DEXMEDETOMIDINE 200 MCG/50 ML Premix IV PRN ×2 (14:46→16:26)
[2017-01-06] MEDS ORDERED: SODIUM CHLOR 0.9% 1000 ML INJ 1,000 ML IV SCH (14:48)
[2017-01-06] MEDS ORDERED: TEMAZEPAM 15 MG CAP PO PRN (15:00)
[2017-01-06] MEDS ORDERED: GLUCAGON 1 MG/ML VIAL OTHER PRN (15:00)
[2017-01-06] MEDS ORDERED: DEXTROSE 50% IN WATER 50 ML VIAL(D50) IV PUSH PRN (15:00)
[2017-01-06] MEDS: ASPIRIN 81 MG CHEW TAB PO SCH (15:00)
[2017-01-06] MEDS ORDERED: MISC INFORMATION OTHER ONE (15:00)
[2017-01-06] MEDS: GELATIN 12 MM/7 MM FOAM TOP PRN (15:49)
--- NOTE | 2017-01-06 15:54 | PD.CONS ---
HPI Consult Requested By Reason for Consult End-stage renal disease. Primary Care Physician Aimee Campbell History of Present Illness 66-year-old Afro[place] male with a history of end-stage renal disease, hypertension diabetes mellitus currently on hemodialysis Monday. Patient also has a history of severe aortic stenosis and is now status post elective TAVR today. Patient probably developed respiratory insufficiency with clinical diagnosis of congestive heart failure and was intubated. Patient was dialyzed yesterday without dialysis performed again today for volume management as well as to correct mild hyperkalemia. Review of Systems ROS Limitations: Clinical Condition, Intubated Past Family Social History Allergies: Coded Allergies: shellfish derived (Unverified Allergy, Severe, 12/13/16) Gout Uncoded Allergies: nuts (Allergy, Severe, 08/24/11) "causes gout to flare up" Past Medical History End-stage renal disease and Secondary hyperparathyroidism renal disease. Dorene's mother's Hypertension Morbid obesity. As indicated above severe aortic stenosis status post TAVR today. Past Surgical History AV fistula placement. Reported Medications Temazepam 30 Mg Cap 30 Mg PO HS PRN Sensipar (Cinacalcet) 90 Mg Tab 90 Mg PO DAILY Renvela (Sevelamer Carbonate) 800 Mg Tab 800 Mg PO TID Nifedipine ER 24 HR (Nifedipine) 30 Mg Tab 30 Mg PO DAILY Ergocalciferol 50,000 Unit Cap 50,000 Units PO Q7D Atorvastatin (Atorvastatin Calcium) 10 Mg Tab 10 Mg PO HS Aspirin Low Dose (Aspirin) 81 Mg Chew 81 Mg CHEW DAILY Active Ordered Medications Current Medications Sodium Chloride 1,000 ml @ 125 mls/hr Q8H IV ; Start 01/06/17 at 05:45; Stop 01/06/17 at 07:05; Status DC Cefazolin Sodium/ Dextrose 50 ml @ 100 mls/hr XM1 TANK DRIVER PRN IV SEE LABEL COMMENTS; Start 01/06/17 at 05:45; Stop 01/06/17 at 07:04; Status DC Povidone Iodine (Betadine 5% Antisepsis Kit) 1 applic XM1 TANK DRIVER PRN EACH NARE SEE LABEL COMMENTS; Start 01/06/17 at 05:45; Stop 01/06/17 at 07:05; Status DC Mupirocin (Bactroban Nasal 2% Oint) 1 applic XM1 TANK DRIVER PRN EACH NARE SEE LABEL COMMENTS Last administered on 01/06/17 06:57; Start 01/06/17 at 05:45; Stop at 07:05; Status DC Chlorhexidine Gluconate (Chlorhexidine 2% Cloth) 3 pack XM1 TANK DRIVER PRN TOPICAL SEE LABEL COMMENTS Last administered on 01/06/17 06:57; Start 01/06/17 at 05:45 ; Stop 01/06/17 at 07:05; Status DC Lactated Ringer's 1,000 ml @ 30 mls/hr Q24H PRN IV SEE LABEL COMMENTS; Start 01/06/17 at 06:00; Stop 01/09/17 at 05:59 Povidone Iodine (Betadine 5% Antisepsis Kit) 1 applic XM1 TANK DRIVER PRN EACH NARE SEE LABEL COMMENTS; Start 01/06/17 at 06:00; Stop 01/06/17 at 07:05; Status DC Chlorhexidine Gluconate (Chlorhexidine 2% Cloth) 3 pack XM1 TANK DRIVER PRN TOPICAL SEE LABEL COMMENTS; Start 01/06/17 at 06:00; Stop 01/06/17 at 07:05; Status DC Sodium Chloride 1,000 ml @ 125 mls/hr Q8H IV ; Start 01/06/17 at 07:15 Cefazolin Sodium/ Dextrose 50 ml @ 100 mls/hr XM1 TANK DRIVER PRN IV SEE LABEL COMMENTS Last administered on 01/06/17 09:00; Start 01/06/17 at 07:15; Stop at 07:14 Povidone Iodine (Betadine 5% Antisepsis Kit) 1 applic XM1 TANK DRIVER PRN EACH NARE SEE LABEL COMMENTS; Start 01/06/17 at 07:15; Stop 01/09/17 at 07:14 Mupirocin (Bactroban Nasal 2% Oint) 1 applic XM1 TANK DRIVER PRN EACH NARE SEE LABEL COMMENTS; Start 01/06/17 at 07:15; Stop 01/09/17 at 07:14 Chlorhexidine Gluconate (Chlorhexidine 2% Cloth) 3 pack XM1 TANK DRIVER PRN TOPICAL SEE LABEL COMMENTS; Start 01/06/17 at 07:15; Stop 01/09/17 at 07:14 Aspirin (Aspirin) 325 mg ONCE ONCE PO Last administered on 01/06/17 07:15; Start 01/06/17 at 07:15; Stop 01/06/17 at 07:16; Status DC Heparin Sodium/ Sodium Chloride 2,500 ml @ As Directed STK-MED ONCE .ROUTE ; Start 01/06/17 at 07:04; Stop 01/06/17 at 07:05; Status DC Diphenhydramine HCl (Benadryl Inj) 50 mg STK-MED ONCE .ROUTE Last administered on 01/06/17 08:05; Start 01/06/17 at 07:57; Stop 01/06/17 at 07:58; Status DC Methylprednisolone Sodium Succinate (SoluMEDROL INJ) 125 mg STK-MED ONCE .ROUTE Last administered on 01/06/17 08:05; Start 01/06/17 at 07:57; Stop 01/06/17 at 07:58; Status DC Dextrose (D50w (Syr) Inj) 50 ml STK-MED ONCE .ROUTE ; Start 01/06/17 at 09:26; Stop 01/06/17 at 09:27; Status DC Dexmedetomidine HCl (Precedex Inj) 200 mcg STK-MED ONCE .ROUTE ; Start 01/06/17 at 10:24; Stop 01/06/17 at 10:25; Status DC Propofol 50 ml @ As Directed STK-MED ONCE .ROUTE Last administered on 14:45; Start 01/06/17 at 11:07; Stop 01/06/17 at 11:08; Status DC Clopidogrel Bisulfate (Plavix) 600 mg NOW ONCE PO Last administered on 11:40; Start 01/06/17 at 11:30; Stop 01/06/17 at 11:33; Status DC Sodium Chloride 1,000 ml @ 0 mls/hr Q0M PRN OTHER For Prime & Rinse Back; Start 01/06/17 at 11:48 Heparin Sodium (Porcine) (Heparin Inj) 8,000 units UNSCH PRN IV FLUSH WITH DIALYSIS; Start 01/06/17 at 12:00 Sodium Chloride 1,000 ml @ 200 mls/hr Q5H PRN IV WITH DIALYSIS; Start 01/06/17 at 11:48 Sodium Chloride 1,000 ml @ 0 mls/hr Q0M PRN OTHER WITH DIALYSIS; Start at 11:48 Mannitol (Mannitol Inj) 12.5 gm UNSCH PRN IV WITH DIALYSIS; Start 01/06/17 at 12:00 Albumin Human 100 ml @ 60 mls/hr UNSCH PRN IV WITH DIALYSIS; Start 01/06/17 at 12:00 Sodium Chloride (NS Flush) 5 ml UNSCH PRN IV FLUSH WITH DIALYSIS; Start at 12:00 Heparin Sodium (Porcine) (Heparin Inj) UNSCH PRN .XX WITH DIALYSIS; Start 01/06/17 at 12:00 Gentamicin Sulfate (Gentamicin (Dialysis) Inj) 20 mg UNSCH PRN OTHER WITH DIALYSIS; Start 01/06/17 at 12:00 Ondansetron HCl (Zofran Inj) 4 mg UNSCH PRN IV PUSH WITH DIALYSIS; Start at 12:00 Acetaminophen (Tylenol) 650 mg UNSCH PRN PO for headach, pain, temp > 101F; Start 01/06/17 at 12:00 Diphenhydramine HCl (Benadryl) 25 mg UNSCH PRN PO for hives/itching/anaphylaxis ; Start 01/06/17 at 12:00 Nitroglycerin (Nitrostat Sl) 0.4 mg UNSCH PRN SL CHEST PAIN; Start 01/06/17 at 12:00 Clonidine (Catapres) 0.1 mg UNSCH PRN PO for BP > 180/100 X 2 readings; Start 01/06/17 at 12:00 Epoetin Jeromy (Epogen Inj) 5,000 units UNSCH PRN IV PUSH WITH DIALYSIS; Start 01/06/17 at 12:00 Gelatin (Gelfoam 12 Mm/7 Mm Top) 1 foam UNSCH PRN TOP SEE LABEL COMMENTS; Start 01/06/17 at 12:00 Calcium Chloride 1 gm/Sodium Chloride 110 ml @ 110 mls/hr NOW ONCE IV ; Start 01/06/17 at 14:00; Stop 01/06/17 at 14:59; Status DC Dexmedetomidine HCl 50 ml @ 6.5 mls/hr TITRATE PRN IV Desired RASS Last administered on 01/06/17t 14:46; Start 01/06/17 at 14:00 Propofol 100 ml @ 3.9 mls/hr TITRATE PRN IV Sedation; Start 01/06/17 at 14:00 Iohexol 210 ml @ 0 mls/hr ONCE ONCE IV ; Start 01/06/17 at 14:07; Stop at 14:32; Status DC Sodium Chloride 1,000 ml @ 125 mls/hr Q8H IV ; Start 01/06/17 at 14:48; Stop 01/06/17 at 18:47; Status UNV Acetaminophen (Tylenol) 650 mg Q4H PRN PO PAIN SCALE 1 TO 2; Start 01/06/17 at 15:00; Stop 01/07/17 at 14:59; Status UNV Miscellaneous Information 1 ONCE ONCE OTHER ; Start 01/06/17 at 15:00; Stop at 15:01; Status UNV Aspirin (Aspirin Chew) 81 mg DAILY PO ; Start 01/06/17 at 15:00; Status UNV Clopidogrel Bisulfate (Plavix) 600 mg NOW ONCE PO ; Start 01/06/17 at 15:00; Stop 01/06/17 at 15:01; Status UNV Clopidogrel Bisulfate (Plavix) 75 mg DAILY PO ; Start 01/07/17 at 09:00; Status UNV Dextrose (D50w (Vial) Inj) 50 ml UNSCH PRN IV PUSH HYPOGLYCEMIA-SEE COMMENTS; Start 01/06/17 at 15:00; Status UNV Glucagon (Glucagon Inj) 1 mg UNSCH PRN OTHER HYPOGLYCEMIA-SEE COMMENTS; Start 01/06/17 at 15:00; Status UNV Insulin Human Regular (NovoLIN R SUPPLEMENTAL SCALE) 1 ACHS SLIDING SCALE SQ ; Start 01/06/17 at 17:00; Status UNV Atorvastatin Calcium (Lipitor) 10 mg HS PO ; Start 01/06/17 at 21:00; Status UNV Ergocalciferol (Drisdol) 50,000 units Q7D PO ; Start 01/06/17 at 15:00; Status UNV Nifedipine (Procardia Xl) 30 mg DAILY PO ; Start 01/07/17 at 09:00; Status UNV Sevelamer Carbonate (Renvela) 800 mg TID PO ; Start 01/06/17 at 18:00; Status UNV Temazepam (Restoril) 30 mg HS PRN PO INSOMNIA; Start 01/06/17 at 15:00; Status UNV Non-Formulary Medication 90 mg DAILY PO ; Start 01/07/17 at 09:00; Status UNV Family History Unobtainable presently. Social History No history of illicit drug use. Physical Exam Vital Signs Vital Signs Date Time Temp Pulse Resp B/P (MAP) Pulse Ox O2 Delivery O2 Flow Rate FiO2 01/06/17 15:00 97.0 66 14 144/62 (89) 98 113/63 (80) 01/06/17 11:05 93 100 01/06/17 11:00 97.5 99 14 179/68 (105) 90 155/79 (104) 01/06/17 10:50 80 100 01/06/17 06:16 98.0 80 20 134/50 (78) 97 Physical Exam GENERAL: Morbidly obese male currently in ET tube in place on ventilatory support. Not in respiratory distress. Alert and responding to questions by hand gestures and nodding head. SKIN: Warm and dry. HEAD: Normocephalic. EYES: No scleral icterus. No injection or drainage. NECK: Supple, trachea midline. No JVD or lymphadenopathy. CARDIOVASCULAR: Regular rate and rhythm without murmurs, gallops, or rubs. RESPIRATORY: Breath sounds equal bilaterally. No accessory muscle use. GASTROINTESTINAL: Abdomen soft, non-tender, nondistended. MUSCULOSKELETAL: No cyanosis, or edema. BACK: Nontender without obvious deformity. No CVA tenderness. Laboratory Laboratory Tests Test 01/06/17 05:55 White Blood Count 8.0 Red Blood Count 3.97 Hemoglobin 11.9 Hematocrit 35.8 Mean Corpuscular Volume 90.1 Mean Corpuscular Hemoglobin 29.9 Mean Corpuscular Hemoglobin Concent 33.1 Red Cell Distribution Width 14.6 Platelet Count 171 Mean Platelet Volume 9.3 Neutrophils (%) (Auto) 49.2 Lymphocytes (%) (Auto) 23.0 Monocytes (%) (Auto) 12.9 Eosinophils (%) (Auto) 13.6 Basophils (%) (Auto) 1.3 Neutrophils # (Auto) 3.9 Lymphocytes # (Auto) 1.8 Monocytes # (Auto) 1.0 Eosinophils # (Auto) 1.1 Basophils # (Auto) 0.1 CBC Comment DIFF FINAL Differential Comment Prothrombin Time 10.5 Prothromb Time International Ratio 1.0 Activated Partial Thromboplast Time 21.4 Blood Urea Nitrogen 47 Creatinine 10.08 Random Glucose 216 Calcium Level 9.6 Sodium Level 134 Potassium Level 5.2 Chloride Level 97 Carbon Dioxide Level 27.0 Anion Gap 10 Estimat Glomerular Filtration Rate 6 Albumin 3.7 Result Diagram: 01/06/17 0555 01/06/17 0555 Assessment and Plan Problem List: (1) End-stage renal disease on hemodialysis ICD Codes: N18.6 - End stage renal disease; Z99.2 - Dependence on renal dialysis Plan: Respiratory insufficiency presumed to be related to congestive heart failure. Hemodialysis today and subsequently tomorrow to resume patient's outpatient schedule. 2.5 L fluid removal today and again tomorrow if tolerated. Patient seen during dialysis and his access appears to be working well. Medication should be adjusted for the patient's end-stage renal disease when indicated. Avoid gadolinium.. (2) Secondary hyperparathyroidism of renal origin ICD Codes: N25.81 - Secondary hyperparathyroidism of renal origin Plan: Resume Sensipar. (3) Benign hypertension with ESRD (end-stage renal disease) ICD Codes: I12.0 - Hypertensive chronic kidney disease with stage 5 chronic kidney disease or end stage renal disease; N18.6 - End stage renal disease (4) Hyperphosphatemia ICD Codes: E83.39 - Other disorders of phosphorus metabolism Plan: Resume phosphate binder once diet is resumed. (5) Aortic stenosis ICD Codes: I35.0 - Nonrheumatic aortic (valve) stenosis Plan: Status post TAVR date of consultation. (6) Diabetes mellitus ICD Codes: E11.9 - Type 2 diabetes mellitus without complications Plan: Management per Hospital primary physician. Kostas Al MD Jan 06, 2017 15:54
--- NOTE | 2017-01-06 16:06 | PD.CARD ---
Cardiology Procedure Note Procedure Name: TAVR Procedure Date: Jan 06, 2017 Procedure Note: DATE OF 48 PREOPERATIVE DIAGNOSIS - Severe aortic stenosis with preserved LV systolic function - Symptoms: shortness of breath, fatigue, recurrent heart failure. [place] [employer] III. - Chronic Diastolic Heart Failure - Hypertension - ESDR on HD - Morbid Obesity - Restrictive Lung Disease - Permanent Pacemaker POST OPERATIVE DIAGNOSIS - Severe aortic stenosis with preserved LV systolic function - Symptoms: shortness of breath, fatigue, recurrent heart failure. [place] [employer] III. - Chronic Diastolic Heart Failure - Hypertension - ESDR on HD - Morbid Obesity - Restrictive Lung Disease - Permanent Pacemaker OPERATIVE PROCEDURE - Left Transfemoral Transcatheter aortic valve replacement with a 29mm S3 Burton Sapiens Valve, - Aortic root angiogram. - Placement of a pigtail catheter for angiography. - Temporary pacemaker insertion. - Perclose left common femoral artery. ANESTHESIA Dr. Key SURGEONS Dr. Lory Lima and Dr. Isabel Skelton [employer]CHITECT Assistant Superintendent: Dr. Terell Bender Geochemistry Teacher: Dr. Ian Torres. Echo support: Dr. Aaron Ortiz. INDICATIONS 66 year-old male with severe symptomatic aortic stenosis with progressive symptom of heart failure/acute on chronic diastolic heart failure. The patient has been evaluated for aortic replacement and the patient was felt to be intermediate risk for conventional aortic valve replacement by Dr. Skelton and Dr. Lima on the basis of frailty, STS score and comorbidities. He has been evaluated for and accepted for transcatheter aortic valve replacement (TAVR) after extensive review of patient's chart. The risk of the procedure have been discussed with the patient at length and consents have been signed to proceed as planned. PROCEDURE DESCRIPTION Under general anesthesia a Transesophageal echocardiogram probe was placed in the esophagus and used throughout the procedure to evaluate aortic valve as well as other valve structures. Then using 1% Lidocaine for local anesthesia and a micropuncture kit a left femoral artery and vein regions was entered percutaneously and a 6-Singaporean sheath was inserted in the right common femoral artery. A the pigtail catheter was advanced over a J 0.035 wire around the arch of the aorta and placed in the noncoronary cusp for aortic angiography in order to get multiple views for deployment of the S3 Allan Valve. Using 1% Lidocaine for local anesthesia and a micropuncture kit the left femoral artery was access. Angiography was performed through the micropuncture sheath to confirmed adequate position or any complications. Then a 8-Singaporean sheath was inserted into the left common femoral artery. This was followed by Preclosing the artery with three Perclose devices. The patient was fully heparinized with an ACT checked. Then a Supracore 0.035 wire was advanced into the ascending aorta and followed by dilating the common femoral artery with a 10-Singaporean dilator this was followed with an introduction of a 16 Singaporean Burton Valve sheath. Then we used an AL-2 over a straight 300 cm Stiff Amplatz wire to cross the aortic valve with the tip left in the mid left ventricular chamber. This was followed by insertion of 6 Singaporean angled pigtail and reshaping of the Amplatz wire into the ventricle. Then we inserted a 29mm +2cc S3 Burton Allan valve. The valve was mounted in a balloon in the ascending aorta and then advanced across the aortic valve using a pigtail catheter, fluoroscopy and the SANDRA to confirm position. After confirmation of the position of the valve it was successfully deployed by balloon inflation during rapid pacing. Post deployment, there were no signs of paravalvular leaks on the SANDRA. The patient tolerated the procedure well without complications. The catheter was removed. We pulled back the delivery system of the valve which was then removed of the body. Then the delivery sheath was then removed from the left femoral artery and a Perclose. Finally, the pigtail was removed and then the sheath on the left side were removed and was Mynx. This concluded the operation. Postoperative transesophageal echocardiogram demonstrated adequate function of the aortic bioprosthesis. The aortic valve area postprocedure was 1.5, The post implant mean gradient was 10mmHg. The post implant aortic valve maximal velocity was 2.35. There was no aortic insufficiency or paravalvular leaks. COMPLICATIONS None. DISPOSITION -Admit to CVICU in stable condition for post cath care. -DAPT with aspirin and Plavix -Early extubation -OOB after bedrest -Telemetry monitoring -Resume home medications -HD today Terell Bender MD, MPH, [facility] Terell Bender MD Jan 06, 2017 16:06
[2017-01-06] MEDS ORDERED: ERGOCALCIFEROL (VIT D2) 50,000 UNIT CAP PO SCH (17:00)
[2017-01-06] MEDS: INSULIN NovoLIN REGULAR SUPPLEMENTAL SCALE SQ SCH ×2 (17:00→21:00)
--- NOTE | 2017-01-06 17:02 | EKG ---
Date Performed: 01/06/2017 Time Performed: 07:07:38 PTAGE: 66 years EKG: Sinus rhythm Consider left atrial abnormality Left axis deviation Left bundle branch block Possible inferior infa rct - age undetermined Since previous tracing, no significant change noted Abnormal ECG PREVIOUS TRACING : 12/13/2016 18.33 DOCTOR: Marilee Alicea Interpretating Date/Time 01/06/2017 17:01:41
[2017-01-06] MEDS: SEVELAMER CARBONATE 800 MG TAB PO SCH (18:00)
[2017-01-06 18:55] LABS: BLOOD GAS CARBOXYHEMOGLOBIN 0.4 % (0-4); BLOOD GAS HCO3 25 mmol/L (22-26); BLOOD GAS METHEMOGLOBIN 1.5 % (0-2); BLOOD GAS O2 HGB SATURATION 97 % (90-100); BLOOD GAS OXYGEN CONTENT 16.5 Vol % (12.0-20.0); BLOOD GAS PCO2 38 mmHg (38-42); BLOOD GAS PO2 175 mmHg (61-120); BLOOD GAS TOTAL HGB 11.8 G/DL (12.0-16.0); CRITICAL VALUE NO; DRAW SITE ART LINE; FIO2 45 %; OXYGEN DEVICE VENTILATOR; STAT NO; TEMP CORR TO 98.6
[2017-01-06] MEDS ORDERED: ATORVASTATIN 10 MG TAB PO SCH (21:00)
[2017-01-06] MEDS: SODIUM CHLOR 0.9% 1000 ML 1,000 ML IV SCH (23:15)
[2017-01-07 00:22] LABS: ALKALINE PHOSPHATASE 84 U/L (45-117); ALT (GPT) 17 U/L (12-78); ANION GAP 11 MEQ/L (5-15); AST (GOT) 21 U/L (15-37); BICARBONATE 26.6 MEQ/L (21.0-32.0); BLOOD UREA NITROGEN 39 MG/DL (7-18); CHLORIDE 94 MEQ/L (98-107); GLOMERULAR FILTRATION RATE 8 ML/MIN (>89); POTASSIUM 4.5 MEQ/L (3.5-5.1); SODIUM (NA) 132 MEQ/L (136-145); TOTAL BILIRUBIN ADULT 0.3 MG/DL (0.2-1.0)
[2017-01-07 03:00] VITALS: BP_SYST 110; BP_SYST 136; BP_DIAS 56; BP_DIAS 63; PULSE 66; RESP 16; TEMP 97.7; O2SAT 98
[2017-01-07 04:58] LABS: HEMATOCRIT 32.8 % (39.0-51.0); MEAN CELL VOLUME 89.7 FL (80.0-100.0); MEAN CORPUSCULAR HGB CONC 33.5 % (32.0-36.0); PLATELET COUNT 127 TH/MM3 (150-450); RED BLOOD COUNT 3.66 MIL/MM3 (4.50-5.90); RED CELL DISTRIBUTION WIDTH 14.7 % (11.6-17.2); REVIEW FLAG FINAL; WHITE BLOOD COUNT 10.9 TH/MM3 (4.0-11.0)
[2017-01-07 05:15] LABS: ANION GAP 13 MEQ/L (5-15); AST (GOT) 26 U/L (15-37); BICARBONATE 25.3 MEQ/L (21.0-32.0); BLOOD UREA NITROGEN 46 MG/DL (7-18); CHLORIDE 94 MEQ/L (98-107); GLOMERULAR FILTRATION RATE 8 ML/MIN (>89); POTASSIUM 4.7 MEQ/L (3.5-5.1); SODIUM (NA) 132 MEQ/L (136-145)
[2017-01-07 05:18] LABS: ALKALINE PHOSPHATASE 84 U/L (45-117); ALT (GPT) 16 U/L (12-78); TOTAL BILIRUBIN ADULT 0.3 MG/DL (0.2-1.0)
--- NOTE | 2017-01-07 06:40 | RADRPT ---
EXAM DATE/TIME: 01/07/2017 05:50 [place] COMPARISON: CHEST PA & LAT, December 13, 2016, 16:58. INDICATIONS : Shortness of breath, possible pneumothorax. MEDICAL HISTORY : Diabetes mellitus type II. Hypothyroidism. Chronic obstructive pulmonary disease. SURGICAL HISTORY : Pacemaker. TAVR ENCOUNTER: Initial ACUITY: 2 days PAIN SCORE: 0/10 LOCATION: Bilateral chest FINDINGS: Portable AP view of the chest demonstrates a normal-sized cardiac silhouette. Right chest wall cardia c pacing device is present. EKG lines overlie the patient. Lungs are underinflated. No effusion, cons olidation, or pneumothorax is identified. CONCLUSION: Underinflated examination without an acute finding identified. Artur Velazquez MD on January 07, 2017 at 6:37 Board Certified Radiologist. This report was verified electronically.
[2017-01-07 07:00] VITALS: BP 154/66; PULSE 73; RESP 20; TEMP 97.5; O2SAT 97
[2017-01-07] MEDS: SODIUM CHLOR 0.9% 1000 ML 1,000 ML IV SCH ×2 (07:15→15:15)
[2017-01-07] MEDS ORDERED: PLAV75TA29 PO (07:35)
--- NOTE | 2017-01-07 07:39 | HHI.DS ---
Discharge Summary Admission Date Jan 06, 2017 at 05:13 Discharge Date: Jan 07, 2017 Admitting Diagnosis SEVERE SYMPTOMATIC AORTIC STENOSIS ACUTE ON CHRONIC DIASTOLIC HEART FAILURE (1) Aortic stenosis Diagnosis: Principal ICD Codes: I35.0 - Nonrheumatic aortic (valve) stenosis (2) Aortic regurgitation Diagnosis: Secondary ICD Codes: I35.1 - Nonrheumatic aortic (valve) insufficiency (3) Diastolic CHF due to valvular disease Diagnosis: Secondary ICD Codes: I38 - Endocarditis, valve unspecified; I50.30 - Unspecified diastolic (congestive) heart failure (4) Hyperphosphatemia ICD Codes: E83.39 - Other disorders of phosphorus metabolism (5) Secondary hyperparathyroidism of renal origin ICD Codes: N25.81 - Secondary hyperparathyroidism of renal origin (6) Diabetes mellitus ICD Codes: E11.9 - Type 2 diabetes mellitus without complications (7) Benign hypertension with ESRD (end-stage renal disease) ICD Codes: I12.0 - Hypertensive chronic kidney disease with stage 5 chronic kidney disease or end stage renal disease; N18.6 - End stage renal disease (8) End-stage renal disease on hemodialysis Diagnosis: Secondary ICD Codes: N18.6 - End stage renal disease; Z99.2 - Dependence on renal dialysis Procedures LEFT TF TAVR Brief History 66 Y/O M WIR SEVERE SYMPTOMATIC WITH PRESERVED LV SYSTOLIC FUNCTION, NYHA IIISX CBC/BMP: 01/07/17 0415 01/07/17 0415 Significant Findings Laboratory Tests Test 01/06/17 05:55 01/06/17 18:48 01/06/17 23:30 01/07/17 04:15 Red Blood Count 3.97 MIL/MM3 (4.50-5.90) 3.66 MIL/MM3 (4.50-5.90) Hemoglobin 11.9 GM/DL (13.0-17.0) 11.0 GM/DL (13.0-17.0) Hematocrit 35.8 % (39.0-51.0) 32.8 % (39.0-51.0) Monocytes (%) (Auto) 12.9 % (0.0-8.0) Eosinophils (%) (Auto) 13.6 % (0.0-4.0) Monocytes # (Auto) 1.0 TH/MM3 (0-0.9) Eosinophils # (Auto) 1.1 TH/MM3 (0-0.4) Activated Partial Thromboplast Time 21.4 SEC (24.3-30.1) Blood Urea Nitrogen 47 MG/DL (7-18) 39 MG/DL (7-18) 46 MG/DL (7-18) Creatinine 10.08 MG/DL (0.60-1.30) 8.34 MG/DL (0.60-1.30) 8.62 MG/DL (0.60-1.30) Random Glucose 216 MG/DL (74-106) 353 MG/DL (74-106) 307 MG/DL (74-106) Sodium Level 134 MEQ/L (136-145) 132 MEQ/L (136-145) 132 MEQ/L (136-145) Potassium Level 5.2 MEQ/L (3.5-5.1) Chloride Level 97 MEQ/L (98-107) 94 MEQ/L (98-107) 94 MEQ/L (98-107) Estimat Glomerular Filtration Rate 6 ML/MIN (>89) 8 ML/MIN (>89) 8 ML/MIN (>89) Arterial Blood pH 7.43 (7.380-7.420) Arterial Blood Partial Pressure O2 175 mmHg (61-120) Blood Gas Hemoglobin 11.8 G/DL (12.0-16.0) Platelet Count 127 TH/MM3 (150-450) Albumin 3.3 GM/DL (3.4-5.0) Calcium Level 8.3 MG/DL (8.5-10.1) Imaging Last Impressions Chest X-Ray 01/07/17 0000 Signed Impressions: Service Date/Time: Saturday, January 07, 2017 05:50 - CONCLUSION: Underinflated examination without an acute finding identified. Artur Velazquez MD PE at Discharge GENERAL: Well-nourished, well-developed patient. SKIN: Warm and dry. HEAD: Normocephalic. EYES: No scleral icterus. No injection or drainage. NECK: Supple, trachea midline. No JVD or lymphadenopathy. CARDIOVASCULAR: Regular rate and rhythm without murmurs, gallops, or rubs. RESPIRATORY: Breath sounds equal bilaterally. No accessory muscle use. GASTROINTESTINAL: Abdomen soft, non-tender, nondistended. EXTREMITIES: No cyanosis, or edema. NEUROLOGICAL: Awake, alert, and oriented x 3. Non-focal. Hospital Course SUCCESSFUL IMPLANTATION OF A 29MM S3 VALVE THRU LEFT TF ACUTE ON CHRONIC HF REQUIRING HD FOR FLUID OVERLOAD Pt Condition on Discharge: Good Discharge Disposition: Discharge Home Discharge Instructions DIET: Follow Instructions for: As Tolerated, No Restrictions, Heart Healthy Diet, Renal Failure Diet Speech Therapy-Diet Recommenda: Regular Activities you can perform: Regular-No Restrictions New Medications: Clopidogrel (Plavix) 75 Mg Tab 75 MG PO DAILY for Angina for 30 Days, #30 TAB 6 Refills Continued Medications: Aspirin (Aspirin Low Dose) 81 Mg Chew 81 MG CHEW DAILY, TAB 0 Refills Atorvastatin (Atorvastatin) 10 Mg Tab 10 MG PO HS for Cholesterol Management, #30 TAB 0 Refills Cinacalcet (Sensipar) 90 Mg Tab 90 MG PO DAILY, #30 TAB 0 Refills Ergocalciferol (Ergocalciferol) 50,000 Unit Cap 62238 UNITS PO Q7D for Nutritional Supplement, #56 CAP Nifedipine ER 24 HR (Nifedipine ER 24 HR) 30 Mg Tab 30 MG PO DAILY, #30 TAB 0 Refills Sevelamer Carbonate (Renvela) 800 Mg Tab 800 MG PO TID for Control phosphorous levels, #90 TAB 0 Refills Temazepam (Temazepam) 30 Mg Cap 30 MG PO HS PRN for INSOMNIA, #30 CAP 0 Refills Terell Bender MD Jan 07, 2017 07:39
[2017-01-07] MEDS: INSULIN NovoLIN REGULAR SUPPLEMENTAL SCALE SQ SCH ×2 (08:07→12:46)
[2017-01-07] MEDS ORDERED: NIFEdipine 30 MG SUSTAINED RELEASE TAB PO SCH (09:00)
[2017-01-07] MEDS ORDERED: CLOPIDOGREL 75 MG TAB PO SCH (09:00)
[2017-01-07] MEDS ORDERED: CINACALCET HYDROCHLORIDE 30 MG TAB PO SCH (09:00)
[2017-01-07] MEDS: SEVELAMER CARBONATE 800 MG TAB PO SCH ×2 (09:00→12:46)
--- NOTE | 2017-01-07 09:35 | PD.CARD.PN ---
Subjective Subjective Remarks no cv complaints no overnight events Objective Medications Current Medications Medications (Trade) Dose Ordered Sig/Cady Route Start Time Stop Time Status Last Admin Lactated Ringer's 1,000 ml @ 30 mls/hr Q24H PRN IV 01/06/17 06:00 01/09/17 05:59 Sodium Chloride 1,000 ml @ 125 mls/hr Q8H IV 01/06/17 07:15 Cefazolin Sodium/ Dextrose 50 ml @ 100 mls/hr HAND NAILER PRN IV 01/06/17 07:15 01/09/17 07:14 01/06/17 09:00 (Betadine 5% Antisepsis Kit) 1 applic HAND NAILER PRN EACH NARE 01/06/17 07:15 01/09/17 07:14 (Bactroban Nasal 2% Oint) 1 applic HAND NAILER PRN EACH NARE 01/06/17 07:15 01/09/17 07:14 (Chlorhexidine 2% Cloth) 3 pack HAND NAILER PRN TOPICAL 01/06/17 07:15 01/09/17 07:14 Sodium Chloride 1,000 ml @ 0 mls/hr Q0M PRN OTHER 01/06/17 11:48 (Heparin Inj) 8,000 units UNSCH PRN IV FLUSH 01/06/17 12:00 Sodium Chloride 1,000 ml @ 200 mls/hr Q5H PRN IV 01/06/17 11:48 Sodium Chloride 1,000 ml @ 0 mls/hr Q0M PRN OTHER 01/06/17 11:48 (Mannitol Inj) 12.5 gm UNSCH PRN IV 01/06/17 12:00 Albumin Human 100 ml @ 60 mls/hr UNSCH PRN IV 01/06/17 12:00 01/06/17 15:49 (NS Flush) 5 ml UNSCH PRN IV FLUSH 01/06/17 12:00 (Heparin Inj) UNSCH PRN .XX 01/06/17 12:00 (Gentamicin (Dialysis) Inj) 20 mg UNSCH PRN OTHER 01/06/17 12:00 (Zofran Inj) 4 mg UNSCH PRN IV PUSH 01/06/17 12:00 (Tylenol) 650 mg UNSCH PRN PO 01/06/17 12:00 (Benadryl) 25 mg UNSCH PRN PO 01/06/17 12:00 (Nitrostat Sl) 0.4 mg UNSCH PRN SL 01/06/17 12:00 (Catapres) 0.1 mg UNSCH PRN PO 01/06/17 12:00 01/07/17 02:26 (Epogen Inj) 5,000 units UNSCH PRN IV PUSH 01/06/17 12:00 (Gelfoam 12 Mm/7 Mm Top) 1 foam UNSCH PRN TOP 01/06/17 12:00 01/06/17 15:49 Dexmedetomidine HCl 50 ml @ 6.5 mls/hr TITRATE PRN IV 01/06/17 14:00 01/06/17 16:26 Propofol 100 ml @ 3.9 mls/hr TITRATE PRN IV 01/06/17 14:00 (Tylenol) 650 mg Q4H PRN PO 01/06/17 15:00 01/07/17 14:59 (Aspirin Chew) 81 mg DAILY PO 01/06/17 15:00 01/06/17 15:00 (Plavix) 75 mg DAILY PO 01/07/17 09:00 (D50w (Vial) Inj) 50 ml UNSCH PRN IV PUSH 01/06/17 15:00 (Glucagon Inj) 1 mg UNSCH PRN OTHER 01/06/17 15:00 (NovoLIN R SUPPLEMENTAL SCALE) 1 ACHS SLIDING SCALE SQ 01/06/17 17:00 01/07/17 08:07 (Lipitor) 10 mg HS PO 01/06/17 21:00 01/06/17 21:00 (Drisdol) 50,000 units Q7D PO 01/06/17 17:00 (Procardia Xl) 30 mg DAILY PO 01/07/17 09:00 (Renvela) 800 mg TID PO 01/06/17 18:00 (Restoril) 30 mg HS PRN PO 01/06/17 15:00 01/07/17 02:28 (Sensipar) 90 mg DAILY PO 01/07/17 09:00 Vital Signs / I&O Vital Signs Date Time Temp Pulse Resp B/P (MAP) Pulse Ox O2 Delivery O2 Flow Rate FiO2 01/07/17 07:00 97.5 73 20 154/66 (95) 97 Arterial Line 01/07/17 07:00 97 Nasal Cannula 2.00 01/07/17 07:00 73 01/07/17 03:00 98 Nasal Cannula 1.00 01/07/17 03:00 97.7 66 16 136/63 (87) 98 110/56 (74) 01/07/17 03:00 66 01/06/17 23:00 98 Nasal Cannula 1.00 01/06/17 23:00 76 01/06/17 23:00 97.6 75 16 126/60 (82) 96 126/68 (87) 01/06/17 22:00 98 Nasal Cannula 2.00 01/06/17 21:00 96 Nasal Cannula 3.00 01/06/17 20:30 97 Nasal Cannula 4.00 01/06/17 20:00 97 Nasal Cannula 4.00 01/06/17 19:50 97 Nasal Cannula 4 40 01/06/17 19:35 98 45 01/06/17 19:00 98 Mechanical Ventilator 45 01/06/17 19:00 73 01/06/17 19:00 45 01/06/17 19:00 97.7 76 13 143/53 (83) 98 122/60 (80) 01/06/17 18:05 92 50 01/06/17 15:00 98 Mechanical Ventilator 50 01/06/17 15:00 50 01/06/17 15:00 66 01/06/17 15:00 97.0 66 14 144/62 (89) 98 113/63 (80) 01/06/17 11:16 60 01/06/17 11:15 100 01/06/17 11:05 93 100 01/06/17 11:00 97.5 99 14 179/68 (105) 90 155/79 (104) 01/06/17 11:00 100 01/06/17 11:00 80 01/06/17 11:00 86 Mechanical Ventilator 100 01/06/17 10:50 80 100 I/O 01/06/17 01/06/17 01/06/17 01/07/17 01/07/17 01/07/17 07:00 15:00 23:00 07:00 15:00 23:00 Intake Total 1834 ml 252 ml 720 ml Output Total 2000 ml Balance 1834 ml -1748 ml 720 ml Intake Oral 720 ml IV Total 34 ml 202 ml Tube Irrigant 50 ml Other 1800 ml Output Hemodialysis 2000 ml Physical Exam GENERAL: Well-nourished, well-developed patient. SKIN: Warm and dry. HEAD: Normocephalic. EYES: No scleral icterus. No injection or drainage. NECK: Supple, trachea midline. No JVD or lymphadenopathy. CARDIOVASCULAR: Regular rate and rhythm without murmurs, gallops, or rubs. RESPIRATORY: Breath sounds equal bilaterally. No accessory muscle use. GASTROINTESTINAL: Abdomen soft, non-tender, nondistended. EXTREMITIES: No cyanosis, or edema. NEUROLOGICAL: Awake, alert, and oriented x 3. Non-focal. Laboratory Laboratory Tests Test 01/06/17 18:48 01/06/17 23:30 01/07/17 04:15 Blood Gas Puncture Site ART LINE Blood Gas Patient Temperature 98.6 Blood Gas HCO3 25 mmol/L Blood Gas Base Excess 1.0 mmol/L Blood Gas Oxygen Saturation 97 % Arterial Blood pH 7.43 Arterial Blood Partial Pressure CO2 38 mmHg Arterial Blood Partial Pressure O2 175 mmHg Arterial Blood Oxygen Content 16.5 Vol % Arterial Blood Carboxyhemoglobin 0.4 % Arterial Blood Methemoglobin 1.5 % Blood Gas Hemoglobin 11.8 G/DL Oxygen Delivery Device VENTILATOR Blood Gas Ventilator Setting CPAP 5/8 PS Blood Gas Inspired Oxygen 45 % Blood Urea Nitrogen 39 MG/DL 46 MG/DL Creatinine 8.34 MG/DL 8.62 MG/DL Random Glucose 353 MG/DL 307 MG/DL Total Protein 8.0 GM/DL 7.7 GM/DL Albumin 3.6 GM/DL 3.3 GM/DL Calcium Level 8.7 MG/DL 8.3 MG/DL Alkaline Phosphatase 84 U/L 84 U/L Aspartate Amino Transf (AST/SGOT) 21 U/L 26 U/L Alanine Aminotransferase (ALT/SGPT) 17 U/L 16 U/L Total Bilirubin 0.3 MG/DL 0.3 MG/DL Sodium Level 132 MEQ/L 132 MEQ/L Potassium Level 4.5 MEQ/L 4.7 MEQ/L Chloride Level 94 MEQ/L 94 MEQ/L Carbon Dioxide Level 26.6 MEQ/L 25.3 MEQ/L Anion Gap 11 MEQ/L 13 MEQ/L Estimat Glomerular Filtration Rate 8 ML/MIN 8 ML/MIN White Blood Count 10.9 TH/MM3 Red Blood Count 3.66 MIL/MM3 Hemoglobin 11.0 GM/DL Hematocrit 32.8 % Mean Corpuscular Volume 89.7 FL Mean Corpuscular Hemoglobin 30.0 PG Mean Corpuscular Hemoglobin Concent 33.5 % Red Cell Distribution Width 14.7 % Platelet Count 127 TH/MM3 Mean Platelet Volume 9.6 FL Imaging Last 24 hours Impressions Chest X-Ray 01/07/17 0000 Signed Impressions: Service Date/Time: Saturday, January 07, 2017 05:50 - CONCLUSION: Underinflated examination without an acute finding identified. Artur Velazquez MD Assessment and Plan Problem List: (1) Aortic stenosis ICD Codes: I35.0 - Nonrheumatic aortic (valve) stenosis Plan: s/p successful LTF TAVR 29mm S3. No overnight events. Acute on chronic diastolic heart failure this AM. HD this am. Recs: 1. HD today 2. Cont home meds 3. PT/OT 4. Encourage ambulation and incentive spirometry d/c home later today after HD (2) Hyperphosphatemia ICD Codes: E83.39 - Other disorders of phosphorus metabolism (3) Secondary hyperparathyroidism of renal origin ICD Codes: N25.81 - Secondary hyperparathyroidism of renal origin (4) Diabetes mellitus ICD Codes: E11.9 - Type 2 diabetes mellitus without complications (5) Benign hypertension with ESRD (end-stage renal disease) ICD Codes: I12.0 - Hypertensive chronic kidney disease with stage 5 chronic kidney disease or end stage renal disease; N18.6 - End stage renal disease (6) End-stage renal disease on hemodialysis ICD Codes: N18.6 - End stage renal disease; Z99.2 - Dependence on renal dialysis (7) Aortic regurgitation ICD Codes: I35.1 - Nonrheumatic aortic (valve) insufficiency (8) Diastolic CHF due to valvular disease ICD Codes: I38 - Endocarditis, valve unspecified; I50.30 - Unspecified diastolic (congestive) heart failure Terell Bender MD Jan 07, 2017 09:35
[2017-01-07] MEDS: ASPIRIN 81 MG CHEW TAB PO SCH (09:37)
[2017-01-07 09:39] VITALS: O2SAT 96
[2017-01-07 11:00] VITALS: BP 137/59; PULSE 68; RESP 18; TEMP 97.8; O2SAT 95
--- NOTE | 2017-01-07 11:09 | PD.CAR.PN ---
CVT Progress Note CVT: POD #: 1 Subjective/Hospital Course: Extubated. No complaints. Objective: Vital Signs Date Time Temp Pulse Resp B/P (MAP) Pulse Ox O2 Delivery O2 Flow Rate FiO2 01/07/17 09:39 96 01/07/17 07:00 97.5 73 20 154/66 (95) 97 Arterial Line 01/07/17 07:00 97 Nasal Cannula 2.00 01/07/17 07:00 73 01/07/17 03:00 98 Nasal Cannula 1.00 01/07/17 03:00 97.7 66 16 136/63 (87) 98 110/56 (74) 01/07/17 03:00 66 01/06/17 23:00 98 Nasal Cannula 1.00 01/06/17 23:00 76 01/06/17 23:00 97.6 75 16 126/60 (82) 96 126/68 (87) 01/06/17 22:00 98 Nasal Cannula 2.00 01/06/17 21:00 96 Nasal Cannula 3.00 01/06/17 20:30 97 Nasal Cannula 4.00 01/06/17 20:00 97 Nasal Cannula 4.00 01/06/17 19:50 97 Nasal Cannula 4 40 01/06/17 19:35 98 45 01/06/17 19:00 98 Mechanical Ventilator 45 01/06/17 19:00 73 01/06/17 19:00 45 01/06/17 19:00 97.7 76 13 143/53 (83) 98 122/60 (80) 01/06/17 18:05 92 50 01/06/17 15:00 98 Mechanical Ventilator 50 01/06/17 15:00 50 01/06/17 15:00 66 01/06/17 15:00 97.0 66 14 144/62 (89) 98 113/63 (80) 01/06/17 11:16 60 01/06/17 11:15 100 Labs: Laboratory Tests Test 01/06/17 23:30 01/07/17 04:15 Blood Urea Nitrogen 39 MG/DL (7-18) 46 MG/DL (7-18) Creatinine 8.34 MG/DL (0.60-1.30) 8.62 MG/DL (0.60-1.30) Random Glucose 353 MG/DL (74-106) 307 MG/DL (74-106) Total Protein 8.0 GM/DL (6.4-8.2) 7.7 GM/DL (6.4-8.2) Albumin 3.6 GM/DL (3.4-5.0) 3.3 GM/DL (3.4-5.0) Calcium Level 8.7 MG/DL (8.5-10.1) 8.3 MG/DL (8.5-10.1) Alkaline Phosphatase 84 U/L (45-117) 84 U/L (45-117) Aspartate Amino Transf (AST/SGOT) 21 U/L (15-37) 26 U/L (15-37) Alanine Aminotransferase (ALT/SGPT) 17 U/L (12-78) 16 U/L (12-78) Total Bilirubin 0.3 MG/DL (0.2-1.0) 0.3 MG/DL (0.2-1.0) Sodium Level 132 MEQ/L (136-145) 132 MEQ/L (136-145) Potassium Level 4.5 MEQ/L (3.5-5.1) 4.7 MEQ/L (3.5-5.1) Chloride Level 94 MEQ/L (98-107) 94 MEQ/L (98-107) Carbon Dioxide Level 26.6 MEQ/L (21.0-32.0) 25.3 MEQ/L (21.0-32.0) Anion Gap 11 MEQ/L (5-15) 13 MEQ/L (5-15) Estimat Glomerular Filtration Rate 8 ML/MIN (>89) 8 ML/MIN (>89) White Blood Count 10.9 TH/MM3 (4.0-11.0) Red Blood Count 3.66 MIL/MM3 (4.50-5.90) Hemoglobin 11.0 GM/DL (13.0-17.0) Hematocrit 32.8 % (39.0-51.0) Mean Corpuscular Volume 89.7 FL (80.0-100.0) Mean Corpuscular Hemoglobin 30.0 PG (27.0-34.0) Mean Corpuscular Hemoglobin Concent 33.5 % (32.0-36.0) Red Cell Distribution Width 14.7 % (11.6-17.2) Platelet Count 127 TH/MM3 (150-450) Mean Platelet Volume 9.6 FL (7.0-11.0) Result Diagram: 01/07/17 0415 01/07/17 0415 Imaging: Last 24 hours Impressions Chest X-Ray 01/07/17 0000 Signed Impressions: Service Date/Time: Saturday, January 07, 2017 05:50 - CONCLUSION: Underinflated examination without an acute finding identified. Artur Velazquez MD Cardiovascular: RRR Pulmonary: Few crackles bilat GI/: NABS, NT Incision: dry and intact Plan: Doing well s/p TAVR HD today Anticipate d/c home later today (1) Aortic stenosis Plan: s/p successful LTF TAVR 29mm S3. No overnight events. Acute on chronic diastolic heart failure this AM. HD this am. Recs: 1. HD today 2. Cont home meds 3. PT/OT 4. Encourage ambulation and incentive spirometry d/c home later today after HD (2) Hyperphosphatemia (3) Secondary hyperparathyroidism of renal origin (4) Diabetes mellitus (5) Benign hypertension with ESRD (end-stage renal disease) (6) End-stage renal disease on hemodialysis (7) Aortic regurgitation (8) Diastolic CHF due to valvular disease Lory Lima MD Jan 07, 2017 11:09
--- NOTE | 2017-01-07 14:50 | HHI.NPPN ---
Subjective History of Present Illness 66-year-old [place] male with a history of end-stage renal disease, hypertension diabetes mellitus currently on hemodialysis Monday. Patient also has a history of severe aortic stenosis and is now status post elective TAVR today. Patient probably developed respiratory insufficiency with clinical diagnosis of congestive heart failure and was intubated. Interval History Patient seen during dialysis today. Extubated and in good spirits with no verbal complaints. Objective Data Data Vital Signs Date Time Temp Pulse Resp B/P (MAP) Pulse Ox O2 Delivery O2 Flow Rate FiO2 01/07/17 11:00 97.8 68 18 137/59 (85) 95 01/07/17 11:00 95 Room Air 21 01/07/17 11:00 68 01/07/17 09:39 96 01/07/17 07:00 97.5 73 20 154/66 (95) 97 Arterial Line 01/07/17 07:00 97 Nasal Cannula 2.00 01/07/17 07:00 73 01/07/17 03:00 98 Nasal Cannula 1.00 01/07/17 03:00 97.7 66 16 136/63 (87) 98 110/56 (74) 01/07/17 03:00 66 01/06/17 23:00 98 Nasal Cannula 1.00 01/06/17 23:00 76 01/06/17 23:00 97.6 75 16 126/60 (82) 96 126/68 (87) 01/06/17 22:00 98 Nasal Cannula 2.00 01/06/17 21:00 96 Nasal Cannula 3.00 01/06/17 20:30 97 Nasal Cannula 4.00 01/06/17 20:00 97 Nasal Cannula 4.00 01/06/17 19:50 97 Nasal Cannula 4 40 01/06/17 19:35 98 45 01/06/17 19:00 98 Mechanical Ventilator 45 01/06/17 19:00 73 01/06/17 19:00 45 01/06/17 19:00 97.7 76 13 143/53 (83) 98 122/60 (80) 01/06/17 18:05 92 50 01/06/17 15:00 98 Mechanical Ventilator 50 01/06/17 15:00 50 01/06/17 15:00 66 01/06/17 15:00 97.0 66 14 144/62 (89) 98 113/63 (80) -: 01/07/175 01/07/17414 Physical Exam General Appearance: Obese Eyes Eye Exam: Sclera White Pulmonary Resp Exam: Clear Bilaterally, Breath Sounds Equal, No Distress Cardiology CV Exam: Regular, Normal Sinus Rhythm, Good Perfusion Gastrointestinal/Abdomen GI Exam: Soft, Non-Tender Integumentary Skin Exam: Clear, Warm, Normal Turgor Extremeties Extremities Exam: No Edema Neurologic Neuro Exam: Alert, Awake, Speech Clear, Moving All Extremities Assessment/Plan Discussed Condition With: Patient Problem List: (1) End-stage renal disease on hemodialysis ICD Codes: N18.6 - End stage renal disease; Z99.2 - Dependence on renal dialysis Plan: Patient is clinically euvolemic today. Clear for discharge from renal point of view postdialysis treatment with follow- up in the outpatient dialysis unit this coming Monday as discussed with him. Patient seen during dialysis and his access appears to be working well. Medication should be adjusted for the patient's end-stage renal disease when indicated. Avoid gadolinium.. (2) Secondary hyperparathyroidism of renal origin ICD Codes: N25.81 - Secondary hyperparathyroidism of renal origin Plan: Resume Sensipar. (3) Benign hypertension with ESRD (end-stage renal disease) ICD Codes: I12.0 - Hypertensive chronic kidney disease with stage 5 chronic kidney disease or end stage renal disease; N18.6 - End stage renal disease (4) Hyperphosphatemia ICD Codes: E83.39 - Other disorders of phosphorus metabolism Plan: Resume phosphate binder once diet is resumed. (5) Aortic stenosis ICD Codes: I35.0 - Nonrheumatic aortic (valve) stenosis Plan: Status post TAVR date of consultation. (6) Diabetes mellitus ICD Codes: E11.9 - Type 2 diabetes mellitus without complications Plan: Management per Hospital primary physician. Kostsa Al MD Jan 07, 2017 14:50
[2017-01-07 15:00] VITALS: PULSE 71; RESP 18; TEMP 97.9; O2SAT 94
[2017-01-07] MEDS: GELATIN 12 MM/7 MM FOAM TOP PRN (15:27)
[2017-01-07 16:00] VITALS: BP 142/65; PULSE 68
--- NOTE | 2017-01-07 18:27 | ECHRPT ---
Indication: EF assessment of CHF, S/P TAVR CONCLUSIONS Mildly dilated left ventricle. Moderate to severe left ventricular hypertrophy. The left ventricular systolic function is hyperdyna christiano with an estimated ejection fraction in the range of 65-70%. Status-post TAVR Aortic valve area is 1.3 cm. Aortic valve mean gradient is 8 mmHg. BP: 136 / 63 HR: Rhythm: Sinus MEASUREMENTS (Male / Female) Normal Values Technical Quality:Very technically difficult study 2D ECHO LV Diastolic Diameter PLAX 5.9 cm 4.2 - 5.9 / 3.9 - 5.3 cm LV Systolic Diameter PLAX 4.1 cm IVS Diastolic Thickness 1.6 cm 0.6 - 1.0 / 0.6 - 0.9 cm LVPW Diastolic Thickness 1.6 cm 0.6 - 1.0 / 0.6 - 0.9 cm LV Relative Wall Thickness 0.5 LVOT Diameter 1.8 cm Aortic Root Diameter 2.5 cm LA Systolic Diameter LX 2.9 cm 3.0 - 4.0 / 2.7 - 3.8 cm DOPPLER AV Peak Velocity 185.0 cm/s AV Peak Gradient 13.7 mmHg AV Mean Gradient 8.0 mmHg AV Velocity Time Integral 37.5 cm LVOT Peak Velocity 102.0 cm/s LVOT Peak Gradient 4.2 mmHg LVOT Velocity Time Integral 19.1 cm AV Area Cont Eq vti 1.3 cm AV Area Cont Eq pk 1.4 cm FINDINGS LEFT VENTRICLE Mildly dilated left ventricle. Moderate to severe left ventricular hypertrophy. The left ventricular systolic function is hyperdyna christiano with an estimated ejection fraction in the range of 65-70%. AORTIC VALVE Status-post TAVR Aortic valve area is 1.3 cm. Aortic valve mean gradient is 8 mmHg. Terell Bender MD (Electronically Signed) Final Date:07 January 2017 18:26
--- NOTE | 2017-01-08 23:05 | EKG ---
Date Performed: 01/07/2017 Time Performed: 04:35:00 PTAGE: 66 years EKG: Sinus rhythm Short CA interval Left axis deviation Ventricular pacemaker rhythm Abnormal ECG NO PREVIOUS TRACING DOCTOR: Ralph Mendez Interpretating Date/Time 01/08/2017 23:04:44
== END 2017-01-07 17:36 | disposition home or self-care (01) | DRG 266 ==
LOC: UNDOADMIN 05:09 → HSDI 05:09 → HDIC 05:13 → HCVI 11:00
PROVIDERS: ADMIT Radiology Vascular & Interventional Radiology; ATTEND Radiology Vascular & Interventional Radiology
PROC: B246ZZ4 Ultrasonography of Right and Left Heart, Transesophageal (ICD-10-PCS; 2017-01-06)
PROC: 5A1935Z Respiratory Ventilation, Less than 24 Consecutive Hours (ICD-10-PCS; 2017-01-06)
PROC: 02RF38Z Replacement of Aortic Valve with Zooplastic Tissue, Percutaneous Approach (ICD-10-PCS; principal; 2017-01-06 08:30)
PROC: 5A1D70Z Performance of Urinary Filtration, Intermittent, Less than 6 Hours Per Day (ICD-10-PCS; 2017-01-06 08:30)
PROC: B3101ZZ Fluoroscopy of Thoracic Aorta using Low Osmolar Contrast (ICD-10-PCS; 2017-01-06 08:30)
DX: I35.0 Nonrheumatic aortic (valve) stenosis (principal); N18.6 End stage renal disease; I50.33 Acute on chronic diastolic (congestive) heart failure; N25.81 Secondary hyperparathyroidism of renal origin; E11.22 Type 2 diabetes mellitus with diabetic chronic kidney disease; I13.2 Hypertensive heart and chronic kidney disease with heart failure and with stage 5 chronic kidney disease, or end stage renal disease; I44.1 Atrioventricular block, second degree; I27.20 Pulmonary hypertension, unspecified; I35.1 Nonrheumatic aortic (valve) insufficiency; E66.01 Morbid (severe) obesity due to excess calories; Z99.2 Dependence on renal dialysis; E87.5 Hyperkalemia; Z95.0 Presence of cardiac pacemaker; E78.5 Hyperlipidemia, unspecified; Z86.73 Personal history of transient ischemic attack (TIA), and cerebral infarction without residual deficits; Z83.3 Family history of diabetes mellitus; Z82.3 Family history of stroke; Z84.1 Family history of disorders of kidney and ureter; Z00.6 Encounter for examination for normal comparison and control in clinical research program
CPT/HCPCS: 33210; 33361; 71010; 80048; 80053; 82040; 82805; 82948; 85002; 85025; 85027; 85610; 85730; 86850; 86900; 86901; 86920; 90935; 93005; 93308; 94002; 94150; 96374; C1760; C1769; C1893; C9399; G0269; J0690; J1200; J1644; J2930; P9047; Q4081